=== PATIENT | male | born 1970 | race Caucasian/White ===

== ENCOUNTER 2020-05-29 06:33 | Outpatient (CLI) | payer OTHER, SELFPAY ==
[2020-05-29 06:50] VITALS: BMI 29.8
--- NOTE | 2020-05-29 06:50 | ECG_ITS ---
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 The baseline electrocardiogram showed normal sinus rhythm, normal axis with normal ST-T's. ??? The patient exercised for 10 minutes and 30 seconds on a [standard Kamar protocol]. Patient attained a maximum heart rate of 167 beats per minute( 98 % of the maximum predicted heart rate) with a blood pressure at the peak exercise of 188/75 mm Hg, oxygen saturation of 95%. The EKG at the peak exercise revealed sinus tachycardia with no significant ST-T wave changes. Patient did not have any chest pain or any significant cardiac arrhythmias with the exercise. ??? During the recovery phase, there were no new changes. ??? Blood pressure at the end of the recovery phase was 162/102 mm Hg with a heart rate of 95 beats per minute and oxygen saturation of 96%. ??? CONCLUSION: 1. Normal EKG response to treadmill exercise. 2. No exercise-induced chest pain or cardiac arrhythmia. 3. Excellent exercise tolerance, attained a maximum of 13.5 METs. Maximum VO2 of 47.3 ml/kg/min. 4. Perfusion scan will be reported separately. Electronically Signed On 05-30-2020 0:55:32 CDT by Rachael Rodríguez M.D. [id number]
--- NOTE | 2020-05-29 06:51 | NMCV_ITS ---
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 Images obtained in supine and prone position. SPECT RESULTS Technical Quality: Excellent Raw Data Analysis: Normal Image Corrections: No attenuation or motion correction applied Summed Stress Score: 0 Summed Rest Score: 0 Summed Difference Score: 0 PERFUSION FINDINGS Small sized perfusion abnormality of mild severity of mid anteroseptal and mid inferior judd on rest images with improved tracer uptake on stress images. This likely represents attenuation artifact. FUNCTIONAL RESULTS (calculated via Gated SPECT) Stress Image LV EF (%): 72 Stress EDV (mL):88 TID: 0.7 Stress ESV (mL):25 FUNCTIONAL FINDINGS: The left ventricle is normal in size. Transient Ischemia Dilatation of 0.7. There is normal left ventricular systolic function. The left ventricular ejection fraction is normal with a value of 72%. There is normal left ventricular wall thickening with no regional wall motion abnormality. Normal end diastolic and end systolic volumes. IMPRESSIONS 1. Myocardial perfusion imaging is normal. 2. Overall left ventricular systolic function is normal without regional wall motion abnormalities. 3. The left ventricular ejection fraction is normal with a value of 72%. 4. No coronary ischemia based on this study. Rachael Rodríguez MD (Electronically Signed) Final Date: 29 May 2020 20:40 S
--- NOTE | 2020-05-29 09:05 | SUR.PREOP ---
Patient reports no pain or discomfort prior to the start of the procedure.
[2020-05-29 09:36] VITALS: BP 162/104; PULSE 91
== END 2020-05-29 06:34 | disposition home or self-care (01) ==
LOC: CDL 06:33
PROVIDERS: PCP Emergency Medicine Emergency Medical Services; Visit Provider Internal Medicine Cardiovascular Disease
DX: R06.02 Shortness of breath (principal); R07.9 Chest pain, unspecified
CPT/HCPCS: 78452; 93017; A9500

== ENCOUNTER → 2021-10-20 13:44 | Outpatient (BNVA) | payer OTHER, SELFPAY | PROVIDERS: PCP Emergency Medicine Emergency Medical Services; Visit Provider Internal Medicine | DX: I25.10 Atherosclerotic heart disease of native coronary artery without angina pectoris (principal); I25.2 Old myocardial infarction; R06.02 Shortness of breath; E78.49 Other hyperlipidemia; F17.200 Nicotine dependence, unspecified, uncomplicated | CPT/HCPCS: 99214 ==

== ENCOUNTER 2021-12-27 08:28 | Outpatient (CLI) | payer OTHER, SELFPAY ==
--- NOTE | 2021-12-27 09:30 | USCV_ITS ---
Luiz Buckley Age: 51 Gender: M : 1970 Exam Date: 12/27/2021 08:43 Ordering Phys: Bashir Black M.D ([email or web address]) Technologist: Kareen Gonsalez Exam Location: [facility] Indication: SOB, CP, history stents BP: 125 / 75 HR: 64 Rhythm: Sinus Technical Quality: Good MEASUREMENTS (Male / Female) Normal Values 2D ECHO LV Diastolic Diameter PLAX 4.3 cm 4.2 - 5.9 / 3.9 - 5.3 cm LV Systolic Diameter PLAX 2.9 cm IVS Diastolic Thickness 1.4 cm 0.6 - 1.0 / 0.6 - 0.9 cm IVS Systolic Thickness 1.6 cm LVPW Diastolic Thickness 0.9 cm 0.6 - 1.0 / 0.6 - 0.9 cm LVPW Systolic Thickness 1.8 cm LVOT Diameter 2.1 cm LV Ejection Fraction 2D Teich 61.1 % LV Ejection Fraction MOD 2C 76.2 % LV Ejection Fraction 2C AL 76.6 % LA Diameter 2.8 cm LA Width 2.7 cm LA Height 3.8 cm RA Width 3.3 cm RA Height 4.3 cm Aorta at Sinotubular Diameter 3.3 cm IVC Diameter 2.1 cm M-MODE Aortic Annulus Diameter 2.0 cm MV E Point Septal Separation 0.6 cm DOPPLER AV Peak Velocity 104.0 cm/s LVOT Peak Velocity 88.0 cm/s AV Area Cont Eq vti 3.0 cm squared AV Area Cont Eq pk 2.8 cm squared MV Peak Velocity 87.0 cm/s MV Area PHT 4.2 cm squared Mitral E to A Ratio 1.2 MV E' Velocity 75.0 cm/s TR Peak Velocity 133.3 cm/s TR Peak Gradient 7.1 mmHg Right Atrial Pressure 3.0 mmHg Pulmonary Artery Systolic Pressu 10.1 mmHg PV Peak Velocity 111.0 cm/s RV Acceleration Time 0.1 s RV Ejection Time 0.3 s RV AcT/ET 0.5 FINDINGS Left Ventricle Normal left ventricular size, systolic function and wall thickness, with no regional wall motion abnormalities. Left ventricular ejection fraction is estimated at 65 %. Normal diastolic filling pattern. Right Ventricle Normal right ventricular size and systolic function. Right ventricular systolic pressure 10.1 mmHg. Right Atrium Normal right atrial size. Left Atrium Normal left atrial size. Mitral Valve Structurally normal mitral valve. No mitral valve stenosis. Trace mitral valve regurgitation. Aortic Valve Structurally normal trileaflet aortic valve. No aortic valve stenosis. No aortic valve regurgitation. Tricuspid Valve Structurally normal tricuspid valve. Trace tricuspid valve regurgitation. Pulmonic Valve Structurally normal pulmonic valve. No pulmonary valve stenosis. Trace pulmonary valve regurgitation. Pericardium No pericardial effusion. Aorta Normal size aortic root and proximal ascending aorta. IVC Normal IVC dimension with >50% respiratory change of the inferior vena cava. CONCLUSIONS 1. Normal left ventricular size, systolic function and wall thickness, with no regional wall motion abnormalities. Left ventricular ejection fraction is estimated at 65 %. Normal diastolic function. 2. Trace mitral valve regurgitation. 3. No prior similar studies to compare. Rachael Rodríguez MD (Electronically Signed) Final Date: 02 January 2022 15:41 S
== END 2021-12-27 08:29 | disposition home or self-care (01) ==
LOC: RAD 08:29
PROVIDERS: PCP Emergency Medicine Emergency Medical Services; Visit Provider Internal Medicine
DX: R06.02 Shortness of breath (principal); R07.9 Chest pain, unspecified; Z98.61 Coronary angioplasty status; I34.0 Nonrheumatic mitral (valve) insufficiency
CPT/HCPCS: 93306

== ENCOUNTER 2022-02-27 10:24 | Emergency (ER) | payer OTHER, SELFPAY ==
[2022-02-27 10:30] VITALS: BP 149/95; PULSE 95; RESP 14; TEMP 36.8; O2SAT 98
--- NOTE | 2022-02-27 10:58 | W.ED.COVID ---
HPI - COVID General: Chief Complaint: COVID symptoms Stated Complaint: neck pain,congestion Time Seen by Provider: 02/27/22 10:58 History of Present Illness: Mr. Buckley is a 52-year-old gentleman with history of CAD s/p stenting, hypertension, hyperlipidemia presenting to the emergency department due to shortness of breath and generalized symptoms. Symptoms began 4 days ago mostly with headache and generalized malaise. Yesterday developed dry cough and some chest tightness. Today he took a home COVID test that was positive. Intensity symptoms is mild to moderate. Course has worsened. No other specific changes in health, exacerbating, or alleviating factors identified. Prior covid testing: yes, results known COVID 19 common symptoms: positive cough, non-productive cough, dyspnea, headache(s) and chest tightness Onset (ago): day(s) Severity: moderate Pertinent comorbid conditions: heart disease and COPD/respiratory disease COVID Results: SARS-CoV-2 Antigen (Rapid) positive (Negative) 02/27/22 11:05 Review of Systems General: Reports: 10 or more systems reviewed and unremarkable except in HPI and below Resp: Reports: dyspnea and non-productive cough Neuro: Reports: headache(s) PFSH ED PFSH: Medical History GERD (gastroesophageal reflux disease) History of colon polyps (~2004) History of myocardial infarction Hyperlipidemia Shortness of breath Sleep apnea Surgical History History of coronary artery stent placement Status post colonoscopy Status post right inguinal hernia repair Family History Father Hypertension Denies family history of Anesthesia complication Bleeding disorder Social History Smoking and tobacco status: current every day smoker Quit status (tobacco): has tried quititng Second hand smoke exposure: No Alcohol intake: current Alcohol intake frequency: holidays/special occasions only Desire information about alcohol rehabilitation?: No Adopted: No Caregiver/support person: Yes Lives independently: Yes Household members: spouse Housing: House Marital status: Highest education level completed: High School Graduate service: Yes Current occupational status: employed Current occupational exposures/hazards: No Pets and animals: Yes History of recent travel: No Sexually active: Yes Current gender identity: Male Cristina/Congregation: Bahai Special cristina needs: No Agree to transfusion: No Financial difficulty paying for basics: Decline to Answer Physical Exam Const: COMMON NORMALS: alert GENERAL APPEARANCE: cooperative and well developed HENMT: COMMON NORMALS: normocephalic and atraumatic HEAD & SCALP: normocephalic and atraumatic Eye: COMMON NORMALS: conjunctivae normal CONJUNCTIVA: Yes conjunctivae normal SCLERA: sclerae normal Neck/C-Spine: COMMON NORMALS: supple GENERAL: Yes trachea midline Resp: COMMON NORMALS: clear to auscultation bilaterally EFFORT & INSPECTION: Yes able to speak in complete sentences AUSCULTATION: clear to auscultation bilaterally Cardio: COMMON NORMALS: regular rate and regular rhythm RATE: regular rate RHYTHM: regular rhythm GI: COMMON NORMALS: Soft to palpation PALPATION: Yes Soft to palpation and No Tenderness to palpation present (GI) Extremity: GENERAL: Yes normal exam except as noted and No edema Neuro: COMMON NORMALS: moves all extremities SENSORIUM/ORIENTATION: Yes alert and No Orientation impaired Psych: COMMON NORMALS: mental status grossly normal and Normal thought process present THOUGHT PROCESS: Normal thought process present Course Vital Signs: Vital signs: Vital Signs Temperature 98.2 F 02/27/22 10:30 Pulse Rate 95 02/27/22 10:30 Respiratory Rate 18 02/27/22 12:30 Blood Pressure 149/95 02/27/22 10:30 Pulse Oximetry 98 02/27/22 10:30 Oxygen Delivery Me thod 02/27/22 10:30 [facility] - COVID Medical Decision Making 52-year-old gentleman presenting with generalized illness including dry cough and positive home COVID test. Patient is nontoxic, exam as above. EKG notable for sinus rhythm, no STEMI. COVID-positive. Chest x-ray with no lobar consolidation or pneumothorax. Patient proved with Toradol, Decadron and given underlying lung disease also treated with doxycycline. He felt improved. Discussed paxlovid with patient. He wishes to proceed with treatment. Most likely etiology of patient's symptoms is viral to exacerbation of underlying airway disease with context of COVID-19. He is not requiring oxygen and is satisfactory for outpatient management. The results of ED evaluation were discussed with the patient including prescriptions and/or symptomatic cares (if applicable) including appropriate and responsible use, followup plan, and return precautions. The patient verbalized understanding and felt safe for discharge. Medical Records I reviewed the patient's medical records. Lab Data I reviewed the patient's lab results. Radiology Impressions Chest X-Ray 02/27/22 11:04 IMPRESSION: No acute findings. Laboratory Results SARS-CoV-2 Ag (Rapid) positive (Negative) 02/27/22 11:05 SARS-CoV-2 Antigen (Rapid) positive (Negative) 02/27/22 11:05 Discharge Plan Discharge Patient Disposition: Home Clinical Impression: COVID-19, COPD with acute bronchitis Condition: Stable Prescriptions: New Decadron 6 mg tablet 6 mg PO DAILY Qty: 14 0RF Paxlovid (EUA) 300 mg (150 mg x 2)-100 mg tablets,dose pack See Rx Instructions .ROUTE .COMPLEX Qty: 30 0RF Rx Instructions: orally per package directions albuterol sulfate 90 mcg/actuation HFA aerosol inhaler 2 inh inhalation Q4H PRN (Reason: shortness of breath or wheezing) Qty: 8.5 0RF No Action omeprazole 20 mg capsule,delayed release(DR/EC) 20 mg PO DAILY clopidogrel [Plavix] 75 mg tablet 75 mg PO DAILY atorvastatin 40 mg tablet 40 mg PO DAILY aspirin 81 mg tablet,delayed release (DR/EC) 81 mg PO DAILY nitroglycerin [Nitrostat] 0.4 mg tablet, sublingual 0.4 mg sublingual Q5M PRN (Reason: chest pain) Qty: 90 3RF Rx Instructions: do not exceed 3 doses per episode albuterol sulfate 90 mcg/actuation HFA aerosol inhaler 2 puff inhalation Q6H PRN (Reason: shortness of breath or wheezing) Qty: 6.7 0RF Discharge Orders: Discharge ED (Routine); Ordered 02/27/22 Ordered By: Kareem Araya Referrals: Donato Harvey, DO [Primary Care Provider] - Discharge Diet: Usual diet Discharge Activity: Resume usual activity Patient Instructions: Nirmatrelvir/Ritonavir (By mouth) (Paxlovid), COPD (Chronic Obstructive Pulmonary Disease) (ED), COVID-19 (Coronavirus Disease 2019) (ED), How to Recover from COVID-19 at Home (ED) Activity Restrictions/Additional Instructions: Thank you for visiting the emergency department. You were seen and evaluated for generalized illness. The most likely cause of your symptoms is COVID-19 with exacerbation of underlying lung disease due to smoking. I will prescribe paxlovid which is authorized under emergency use authorization as discussed. Please ensure that you are staying hydrated. You may use [id number] medications such as acetaminophen and ibuprofen for pain however please do not exceed the daily recommended dosage as listed on the packaging and please keep in mind that many namebrand medications contain the same active ingredients. Please avoid these medications if previously instructed to do so by another physician due to other underlying medical condition. I will prescribe steroids and antibiotics. Please also use your albuterol metered-dose inhaler 2 puffs every 4 hours for 24 hours followed by 2 puffs every 6 hours for 24 hours followed by 2 puffs every 8 hours for 24 hours and then return to the normal schedule. Return to the emergency department for uncontrolled symptoms or anything else that you are concerned about and feel needs emergency department evaluation. Please follow-up with a primary care provider. Establish with a primary care provider if you do not currently have one. Coding Level of Care Code ED Board Runner for Al Fwshawn Exam Comprehensive
--- NOTE | 2022-02-27 11:04 | XRR_ITS ---
PROCEDURE INFORMATION: Exam: XR Chest Exam date and time: 02/27/2022 11:41 AM Age: 52 years old Clinical indication: Cough TECHNIQUE: Imaging protocol: Radiologic exam of the chest. Views: 1 view. COMPARISON: No relevant prior studies available. FINDINGS: Lungs: No consolidation. Pleural spaces: Unremarkable. No pleural effusion. No pneumothorax. Heart/Mediastinum: No cardiomegaly. Bones/joints: No acute findings. XR/XR chest 1V portable [id number] IMPRESSION: No acute findings.
--- NOTE | 2022-02-27 11:44 | ECG_ITS ---
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 Measurements Intervals [place] Rate: 85 P: 31 [place]: 170 QRS: 11 QRSD: 85 T: 41 QT: 327 QTc: 390 Interpretive Statements SINUS RHYTHM No previous ECG available for comparison Electronically Signed On 02-28-2022 6:08:04 VASCULAR NURSE by Rachael Rodríguez M.D. [id number]
[2022-02-27] MEDS: ketorolac 30 mg/mL INJ IM (11:47)
[2022-02-27] MEDS: dexamethasone 4 mg Tablet 6 MG PO (11:47)
[2022-02-27 11:52] LABS: SARS Covid-2 Antigen positive (Negative)
[2022-02-27] MEDS: doxycycline 100 mg Tablet PO (12:26)
[2022-02-27 12:30] VITALS: RESP 18
== END 2022-02-27 12:30 | disposition home or self-care (01) ==
PROVIDERS: Emergency Provider Emergency Medicine; PCP Emergency Medicine Emergency Medical Services
DX: U07.1 COVID-19 (principal); J44.0 Chronic obstructive pulmonary disease with (acute) lower respiratory infection; J20.9 Acute bronchitis, unspecified; Z79.82 Long term (current) use of aspirin; Z79.02 Long term (current) use of antithrombotics/antiplatelets; I25.2 Old myocardial infarction; E78.5 Hyperlipidemia, unspecified; F17.210 Nicotine dependence, cigarettes, uncomplicated
CPT/HCPCS: 71045; 87426; 93005; 96372; 99284; J1885; J8540

== ENCOUNTER 2022-03-18 06:51 | Outpatient (CLI) | payer OTHER, SELFPAY ==
[2022-03-18 07:11] VITALS: BMI 31.1
--- NOTE | 2022-03-18 07:15 | ECG_ITS ---
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 Interpretive Statements NAME OF STUDY: LEXISCAN SESTAMIBI STRESS TEST INDICATION: [Shortness of Breath, ] Procedure: At the baseline, the blood pressure was 153/89 mmHg with a heart rate of 59 bpm. The electrocardiogram showed sinus bradycardia, normal axis with normal ST and T's. The Lexiscan was infused over a period of 20 seconds. A total of 0.4 mg of Lexiscan was infused. The stress phase was continued for a total of 5 minutes. Heart rate was at the end of stress phase was 84 bpm and a blood pressure of 160/86 mmHg. The EKG at the peak infusion revealed normal sinus rhythm with no significant ST-T wave changes. Sestamibi was injected 20 seconds after the Lexiscan infusion. Blood pressure at the end of recovery phase was 156/89mmHg with a heart rate of 74 bpm. Conclusion: 1. Normal EKG response to Lexiscan infusion 2. No Lexiscan induced chest pain or cardiac arrhythmia. 3. Normal blood pressure and heart rate response. 4. Sestamibi/sestamibi perfusion scan pending; see separate report. Electronically Signed On 03-31-2022 10:56:38 CLIENT SERVICES ASSISTANT by Bashir Black M.D. [id number]
--- NOTE | 2022-03-18 07:16 | NMCV_ITS ---
NM estela perf SPECT r/s* [id number] Luiz Buckley Age: 52 Gender: M : 1970 Exam Date: 03/18/2022 07:36 Ordering Phys: Bashir Black M.D ([email or web address]) Technologist: CARSON Novak Exam Location: [facility] Indications: SHORTNESS OF BREATH STRESS TEST Please see separate stress test report in Ephiphany for full findings IMAGE PROTOCOL Rest/Stress 1 Lexiscan Day Radiopharmaceutical Dose (mCi) Administration Site Administered by Rest: Tc-99m 10.9 IV CARSON Logan Sestamibi Stress:Tc-99m 32.4 IV CARSON Logan Sestamibi Rest: 18-Mar-2022 60 Discovery 630 Stress: 18-Mar-2022 30 Discovery 630 0.4mg Lexiscan. Images obtained in supine and prone position. SPECT RESULTS Technical Quality: Excellent Raw Data Analysis: Normal Image Corrections: No attenuation or motion correction applied Summed Stress Score: 0 Summed Rest Score: 0 Summed Difference Score: 0 PERFUSION FINDINGS SPECT images demonstrate homogeneous tracer distribution throughout the myocardium. FUNCTIONAL RESULTS (calculated via Gated SPECT) Stress Image LV EF (%): 74 Stress EDV (mL):120 TID: 1.05 Stress ESV (mL):31 FUNCTIONAL FINDINGS: There is normal left ventricular systolic function. IMPRESSIONS 1. Normal myocardial perfusion imaging with no evidence of ischemia 2. LV systolic function is normal. Bashir Black MD (Electronically Signed) Final Date: 18 March 2022 13:21 S
[2022-03-18] MEDS: regadenoson 0.4 Mg/5 ml Syringe IVP (09:22)
[2022-03-18 09:36] VITALS: BP 158/89; PULSE 77
== END 2022-03-18 06:52 | disposition home or self-care (01) ==
LOC: CDL 06:53
PROVIDERS: PCP Emergency Medicine Emergency Medical Services; Visit Provider Internal Medicine
DX: R06.02 Shortness of breath (principal)
CPT/HCPCS: 36415; 78452; 93017; 96374; A9500; J2785

== ENCOUNTER → 2022-07-18 14:31 | Outpatient (BNVA) | payer OTHER, SELFPAY | PROVIDERS: PCP Emergency Medicine Emergency Medical Services; Visit Provider Internal Medicine | DX: I25.2 Old myocardial infarction (principal); R06.02 Shortness of breath; E78.49 Other hyperlipidemia; I25.10 Atherosclerotic heart disease of native coronary artery without angina pectoris; F17.210 Nicotine dependence, cigarettes, uncomplicated | CPT/HCPCS: 99214 ==

== ENCOUNTER 2022-08-05 14:11 | Emergency (ER) | payer OTHER, SELFPAY ==
[2022-08-05 14:30] VITALS: BP 158/94; PULSE 86; RESP 16; TEMP 36.7; O2SAT 95
--- NOTE | 2022-08-05 16:18 | CTR_ITS ---
PROCEDURE INFORMATION: Exam: CT Abdomen And Pelvis With Contrast Exam date and time: 08/05/2022 4:31 PM Age: 52 years old Clinical indication: Abdominal pain; Localized; Lower; Prior surgery; Surgery date: 6+ months; Surgery type: Right inguinal hernia; Additional info: Abd pain TECHNIQUE: Imaging protocol: Computed tomography of the abdomen and pelvis with contrast. Radiation optimization: All CT scans at this facility use at least one of these dose optimization techniques: automated exposure control; mA and/or kV adjustment per patient size (includes targeted exams where dose is matched to clinical indication); or iterative reconstruction. Contrast material: OMNI 350; Contrast volume: 100 ml; Contrast route: INTRAVENOUS (IV); REPORTING DATA: Count of CT and Cardiac NM exams in prior 12 months: This patient has received [address] and 0 known cardiac nuclear medicine studies in the 12 months prior to the current study. COMPARISON: CR XR chest 1V portable [id number] 02/27/2022 11:41 AM RADIATION DOSE METRICS: Total DLP (mGy-cm): 665.17 FINDINGS: Lungs: Multiple 2-3 mm nodules in the lower lobes. Liver: Normal. No mass. Gallbladder and bile ducts: Normal. No calcified stones. No ductal dilation. Pancreas: Normal. No ductal dilation. Spleen: Normal. No splenomegaly. Adrenal glands: Normal. No mass. Kidneys and ureters: Normal. No hydronephrosis. Stomach and bowel: Diverticulosis of the distal colon. Inflammation and fat stranding surrounding a single diverticulum in the proximal sigmoid colon, consistent with acute diverticulitis. No definite perforation. The stomach is decompressed. The small bowel is normal. No obstruction. Appendix: The appendix is visualized and is normal. Intraperitoneal space: Unremarkable. No free air. No significant fluid collection. Vasculature: Arterial calcifications. No aneurysm. Lymph nodes: Unremarkable. No enlarged lymph nodes. Urinary bladder: Unremarkable as visualized. Reproductive: Unremarkable as visualized. Bones/joints: Bone island in the L1 vertebral body. Spondylitic degenerative changes at L5-S1. No fracture. Soft tissues: Small fat containing umbilical hernia. CT/CT abdomen pelvis w con* [id number] IMPRESSION: 1. Acute sigmoid diverticulitis. 2. 2-3 mm pulmonary nodules. For patients at low risk (minimal or absent history of smoking and of other known risk factors), no routine follow-up is indicated. For patients at high risk (history of smoking or of other known risk factors), consider optional CT Chest at 12 months. (Reference: Chinyere) References: Chinyere Chand, et al. Guidelines for Management of Incidental Pulmonary Nodules Detected on CT Images: From the Fleischner Society 2017. Radiology. 2017;284(1):228-243.
--- NOTE | 2022-08-05 16:24 | W.ED.ABDPA2 ---
HPI - Abdominal Pain General: Chief Complaint: Abdominal Pain Stated Complaint: urinary pain Time Seen by Provider: 08/05/22 14:52 Source: patient Mode of arrival: ambulatory Limitations: no limitations History of Present Illness: 52-year-old male who states that he has been having some lower abdominal and flank pain over the last 2 to 3 days. He states it was worse this morning its worst was an 8 out of 10 much worse with movement he states it is actually improved slightly is now 3 out of 10 still having some pain in the right lower quadrant states that for quite some time he seems like he has a hard time peeing at times but he states he is able to urinate. He denies any dysuria or pain with stools. Denies any discharge. Associated Symptoms: Denies chills and fever(s) Review of Systems Const: Denies: fever(s), chills, body aches or change in appetite Eyes: Denies: blurry vision or eye discomfort ENMT: Denies: throat pain or dental pain Card: Denies: chest pain Resp: Denies: dyspnea GI: Reports: abdominal pain Musc: Denies: neck pain or back pain Skin/Breast: Denies: rash Neuro: Denies: headache(s) PFSH ED PFSH: Medical History GERD (gastroesophageal reflux disease) History of colon polyps (~2004) History of myocardial infarction Hyperlipidemia Shortness of breath Sleep apnea Surgical History History of coronary artery stent placement Status post colonoscopy Status post right inguinal hernia repair Family History Father Hypertension Denies family history of Anesthesia complication Bleeding disorder Social History Smoking and tobacco status: current every day smoker Quit status (tobacco): has tried quititng Second hand smoke exposure: No Alcohol intake: current Alcohol intake frequency: holidays/special occasions only Desire information about alcohol rehabilitation?: No Substance/Drug Use: never Adopted: No Caregiver/support person: Yes Lives independently: Yes Household members: spouse Housing: House Marital status: Highest education level completed: High School Graduate service: Yes Current occupational status: employed Current occupational exposures/hazards: No Pets and animals: Yes Sexually active: Yes Do you think of yourself as: Straight/Heterosexual Current gender identity: Male Cristina/Shinto: Cheondoism Special cristina needs: No Agree to transfusion: No Financial difficulty paying for basics: Decline to Answer Physical Exam Const: COMMON NORMALS: no acute distress, patient oriented x3 and healthy appearing HENMT: COMMON NORMALS: normocephalic and atraumatic HEAD & SCALP: normocephalic and atraumatic Eye: COMMON NORMALS: Equal, round and reactive pupils present and EOMs intact bilaterally PUPIL: Yes Equal, round and reactive pupils present Neck/C-Spine: COMMON NORMALS: supple Chest: COMMONS NORMALS: normal inspection of the chest and normal palpation of entire chest wall Resp: COMMON NORMALS: normal respiratory effort, No retractions, No use of accessory muscles and clear to auscultation bilaterally AUSCULTATION: clear to auscultation bilaterally Cardio: COMMON NORMALS: regular rate, regular rhythm and No murmurs present (Cardio) RATE: regular rate RHYTHM: regular rhythm GI: COMMON NORMALS: Normal to inspection, nondistended, normoactive bowel sounds present, Soft to palpation and no masses PALPATION: Yes Soft to palpation OTHER: mild rlq tenderness Extremity: COMMON NORMALS: normal to inspection and full ROM Neuro: COMMON NORMALS: patient oriented x3, moves all extremities and no focal motor deficits Psych: COMMON NORMALS: mental status grossly normal, Normal thought process present and cooperative THOUGHT PROCESS: Normal thought process present Skin: COMMON NORMALS: no rashes or lesions noted and no wounds GENERAL SKIN EXAM: no rashes or lesions noted Course Vital Signs: Vital signs: Vital Signs Temperature 98.0 F 08/05/22 14:30 Pulse Rate 66 08/05/22 16:30 Respiratory Rate 16 08/05/22 14:30 Blood Pressure 153/83 08/05/22 16:30 Pulse Oximetry 97 08/05/22 16:30 Oxygen Delivery Me thod Room Air 08/05/22 16:30 MDM - Abdominal Pain Medical Decision Making Patient presents here with abdominal pain he has minimal tenderness white counts normal CT did show diverticulitis I believe will be able to treat him outpatient with oral antibiotics. Will prescribe him Cipro Flagyl we will prescribe him hydrocodone along with Zofran. He is to follow-up with his PCP and return if worsening. Medical Records I reviewed the patient's medical records. Lab Data I reviewed the patient's lab results. 08/05/22 17:00 08/05/22 17:00 Labs/Radiology: Radiology Impressions Abdomen/Pelvis CT 08/05/22 16:18 IMPRESSION: 1. Acute sigmoid diverticulitis. 2. 2-3 mm pulmonary nodules. For patients at low risk (minimal or absent history of smoking and of other known risk factors), no routine follow-up is indicated. For patients at high risk (history of smoking or of other known risk factors), consider optional CT Chest at 12 months. (Reference: Chinyere) References: Chinyere Chand, et al. Guidelines for Management of Incidental Pulmonary Nodules Detected on CT Images: From the Fleischner Society 2017. Radiology. 2017;284(1):228-243. Laboratory Results WBC 8.8 10^3/uL (4.0-10.0) 08/05/22 17:00 RBC 4.40 10^6/uL (4.1-5.3) 08/05/22 17:00 Hgb 13.0 g/dL (11.7-16.6) 08/05/22 17:00 Hct 39.2 % (42.0-52.0) L 08/05/22 17:00 MCV 89.1 fl (80-94) 08/05/22 17:00 MCH 29.5 pg (28.0-34.0) 08/05/22 17:00 MCHC 33.2 g/dL (30.0-36.0) 08/05/22 17:00 RDW 12.5 % (12.1-15.1) 08/05/22 17:00 Plt Count 182 10^3/cmm (130-400) 08/05/22 17:00 MPV 9.8 fL (7.4-10.4) 08/05/22 17:00 Neut % (Auto) 63.0 % 08/05/22 17:00 Lymph % (Auto) 27.9 % 08/05/22 17:00 [place] % (Auto) 6.2 % 08/05/22 17:00 Eos % (Auto) 2.0 % 08/05/22 17:00 Baso % (Auto) 0.6 % 08/05/22 17:00 Neut # (Auto) 5.56 10^3/uL (1.8-7.7) 08/05/22 17:00 Lymph # (Auto) 2.5 10^3/uL (0.8-4.8) 08/05/22 17:00 [place] # (Auto) 0.6 10^3/uL (0.2-0.9) 08/05/22 17:00 Eos # (Auto) 0.2 10^3/uL (0.0-0.8) 08/05/22 17:00 Baso # (Auto) 0.1 10^3/uL (0.0-0.1) 08/05/22 17:00 Nucleated RBC % (auto) 0 % 08/05/22 17:00 Nucleated RBCs # 0.0 /100WBC 08/05/22 17:00 Sodium 138 mmol/L (136-145) 08/05/22 17:00 Potassium 4.0 mmol/L (3.5-5.1) 08/05/22 17:00 Chloride 102 mmol/L (98-107) 08/05/22 17:00 Carbon Dioxide 26 mmol/L (22-29) 08/05/22 17:00 Anion Gap 14.0 (5-19) 08/05/22 17:00 BUN 13 mg/dL (6-20) 08/05/22 17:00 Creatinine 0.9 mg/dL (0.7-1.2) 08/05/22 17:00 GFR Calculation 88.3 mL/min (90-130) L 08/05/22 17:00 Glucose 72 mg/dL (65-115) 08/05/22 17:00 Calculated Osmolality 285 mOsm/kg (285-295) 08/05/22 17:00 Calcium 8.7 mg/dL (8.5-10.5) 08/05/22 17:00 Total Bilirubin 0.5 mg/dL (0.15-1.2) 08/05/22 17:00 AST 17 U/L (0-40) 08/05/22 17:00 ALT 16 U/L (0-41) 08/05/22 17:00 Alkaline Phosphatase 99 U/L (40-130) 08/05/22 17:00 Total Protein 6.4 g/dL (6.6-8.7) L 08/05/22 17:00 Albumin 4.0 g/dL (3.5-5.2) 08/05/22 17:00 Globulin 2.4 g/dL (1.3-4.6) 08/05/22 17:00 Lipase 24 U/L (13-60) 08/05/22 17:00 Urine Color Yellow (Yellow) 08/05/22 16:43 Urine Appearance Clear (CLEAR) 08/05/22 16:43 Urine pH 5 (5-7) 08/05/22 16:43 Ur Specific [place] 1.020 (1.005-1.030) 08/05/22 16:43 Urine Protein Neg (Negative) 08/05/22 16:43 Urine Glucose (UA) Norm (Normal) 08/05/22 16:43 Urine Ketones 1+ (Negative) H 08/05/22 16:43 Urine Blood Neg (Negative) 08/05/22 16:43 Urine Nitrate Negative (Negative) 08/05/22 16:43 Urine Bilirubin Neg (Negative) 08/05/22 16:43 Urine Urobilinogen 1 mg/dL (Negative) H 08/05/22 16:43 Ur Leukocyte Esterase Negative (Negative) 08/05/22 16:43 Discharge Plan Discharge Patient Disposition: Home Clinical Impression: Diverticulitis Condition: Stable Prescriptions: New hydrocodone-acetaminophen 5-325 mg tablet 1 tab PO Q6H PRN (Reason: pain) Qty: 14 0RF metronidazole 500 mg tablet 500 mg PO Q8H 7 Days Qty: 21 0RF Cipro 500 mg tablet 500 mg PO BID Qty: 14 0RF ondansetron 4 mg tablet,disintegrating 4 mg PO Q6H PRN (Reason: nausea and vomiting) Qty: 14 0RF No Action omeprazole 20 mg capsule,delayed release(DR/EC) 20 mg PO DAILY clopidogrel [Plavix] 75 mg tablet 75 mg PO DAILY atorvastatin 40 mg tablet 40 mg PO DAILY aspirin 81 mg tablet,delayed release (DR/EC) 81 mg PO DAILY nitroglycerin [Nitrostat] 0.4 mg tablet, sublingual 0.4 mg sublingual Q5M PRN (Reason: chest pain) Qty: 90 3RF Rx Instructions: do not exceed 3 doses per episode albuterol sulfate 90 mcg/actuation HFA aerosol inhaler 2 inh inhalation Q4H PRN (Reason: shortness of breath or wheezing) Qty: 8.5 0RF Discharge Orders: Discharge ED (Routine); Ordered 08/05/22 Ordered By: Lubna Lee Referrals: Derik Calix DO [Physician] - 1-3 days Donato Harvey DO [Primary Care Provider] - Discharge Diet: Advance as tolerated Discharge Activity: Resume usual activity Patient Instructions: Diverticulitis (ED), Opioid Safety Coding Level of Care Code ED [employer] for [facility]
[2022-08-05 16:30] VITALS: BP 153/83; PULSE 66; O2SAT 97
[2022-08-05 16:58] LABS: Add Urine Microscopic? NO; Charge for UA Resulting for Rev
[2022-08-05 17:05] LABS: Glucose Urine UA Norm (Normal); Protein Urine Neg (Negative); Urine Appearance Clear (CLEAR); Urine Color Yellow (Yellow); pH Urine 5 (5-7)
[2022-08-05 17:06] LABS: Bilirubin Urine Neg (Negative); Blood Urine Neg (Negative); Ketones Urine 1+ (Negative); Leukocyte Esterase Urine Negative (Negative); Nitrate Urine Negative (Negative); Urobilinogen Urine 1 mg/dL (Negative)
[2022-08-05 17:08] LABS: Basophils # 0.1 10^3/uL (0.0-0.1); Basophils % 0.6 %; Eosinophils # 0.2 10^3/uL (0.0-0.8); Hematocrit 39.2 % (42.0-52.0); Lymphocytes # 2.5 10^3/uL (0.8-4.8); Lymphocytes % 27.9 %; Mean Corpuscular HGB Conc 33.2 g/dL (30.0-36.0); Mean Corpuscular Hemoglobin 29.5 pg (28.0-34.0); Mean Corpuscular Volume 89.1 fl (80-94); Mean Platelet Volume 9.8 fL (7.4-10.4); Monocytes # 0.6 10^3/uL (0.2-0.9); Monocytes % 6.2 %; Neutrophils # 5.56 10^3/uL (1.8-7.7); Nucleated Red Blood Cells % 0 %; Platelet Count 182 10^3/cmm (130-400); Red Cell Distribution Width 12.5 % (12.1-15.1); White Blood Count 8.8 10^3/uL (4.0-10.0)
[2022-08-05 17:22] LABS: Alanine Aminotransferase 16 U/L (0-41); Alkaline Phosphatase 99 U/L (40-130); Aspartate Amino Transferase 17 U/L (0-40); Blood Urea Nitrogen 13 mg/dL (6-20); Calcium 8.7 mg/dL (8.5-10.5); Carbon Dioxide 26 mmol/L (22-29); Chloride 102 mmol/L (98-107); Globulin 2.4 g/dL (1.3-4.6); Glomerular Filtration Rate 88.3 mL/min (90-130); Glucose 72 mg/dL (65-115); Lipase 24 U/L (13-60); Osmolality Calculated 285 mOsm/kg (285-295); Sodium 138 mmol/L (136-145); Total Bilirubin 0.5 mg/dL (0.15-1.2); Total Protein 6.4 g/dL (6.6-8.7)
[2022-08-05] MEDS: ciprofloxacin 500 mg Tablet PO (17:31)
[2022-08-05] MEDS: metroNIDAZOLE 500 MG Tablet PO (17:31)
[2022-08-05 17:54] VITALS: BP 150/103; PULSE 67; O2SAT 100
--- NOTE | 2022-08-08 08:26 | DCPLANNER ---
Addendum entered by Dana Villafuerte 09/09/22 10:08: This appointment was cancelled Addendum entered by Dana Villafuerte 08/09/22 09:07: ultrasound manager received the following message from general surgery regarding follow up appointment: Spoke with patient. He is aware Dr. Calix is not accepting [employer] insurance so he offered [employer] (active). He is also aware that whatever [employer] does not cover that he will be responsible for. I gave him a date with Dr. Calix for 08/23/22. He may be calling back to cancel since his [facility] is potentially getting a referral set up else where. Patient has a follow up appointment scheduled for Tuesday, August 23, 2022 at 3:[address] Calix at general surgery. Addendum entered by Dana Villafuerte 08/09/22 09:06: Patient called casework manager back, casework manager explained to patient that he would need to be referred elsewhere. Patient stated that he had different insurance that he wanted to use and not the [facility]. ultrasound manager had patient speak with general surgery. Addendum entered by Dana Villafuerte 08/08/22 14:25: Patient has [facility] insurance, will need to be referred somewhere else. ultrasound manager tried to call patient at [phone] - unable to speak with patient at this time, a voicemail was left for patient to return catalytic case operator phone call. Original Note: ultrasound manager had message to schedule a follow up appointment for patient with general surgery. ultrasound manager sent patients information to the front office staff at general surgery. Patients information will be printed and reviewed. Clinic will call patient with appointment information.
== END 2022-08-05 17:55 | disposition home or self-care (01) ==
PROVIDERS: Emergency Provider Emergency Medicine; PCP Emergency Medicine Emergency Medical Services
DX: K57.92 Diverticulitis of intestine, part unspecified, without perforation or abscess without bleeding (principal); Z79.82 Long term (current) use of aspirin; Z79.02 Long term (current) use of antithrombotics/antiplatelets; I25.2 Old myocardial infarction; E78.5 Hyperlipidemia, unspecified; F17.210 Nicotine dependence, cigarettes, uncomplicated
CPT/HCPCS: 74177; 80053; 81003; 83690; 85025; 99284

== ENCOUNTER → 2022-10-03 07:59 | Outpatient (BNVA) | payer OTHER, SELFPAY | PROVIDERS: PCP Emergency Medicine Emergency Medical Services; Referring Provider Emergency Medicine Emergency Medical Services; Visit Provider Nurse Practitioner Family | DX: L57.0 Actinic keratosis (principal); L82.1 Other seborrheic keratosis; D29.4 Benign neoplasm of scrotum; L81.4 Other melanin hyperpigmentation; L57.8 Other skin changes due to chronic exposure to nonionizing radiation; D22.5 Melanocytic nevi of trunk; Z85.820 Personal history of malignant melanoma of skin; Z80.8 Family history of malignant neoplasm of other organs or systems; Z87.891 Personal history of nicotine dependence | CPT/HCPCS: 17000; 17003; 99203 ==

== ENCOUNTER → 2023-01-16 09:32 | Outpatient (BNVA) | payer OTHER, SELFPAY | PROVIDERS: PCP Emergency Medicine Emergency Medical Services; Visit Provider Specialist | DX: M65.30 Trigger finger, unspecified finger (principal) | CPT/HCPCS: 73130 ==

== ENCOUNTER 2023-01-16 11:04 | Outpatient (CLI) | payer OTHER, SELFPAY | END 2023-01-16 11:05 | disposition home or self-care (01) | LOC: SPT 11:06 | PROVIDERS: PCP Emergency Medicine Emergency Medical Services; Visit Provider Specialist | DX: Z46.89 Encounter for fitting and adjustment of other specified devices (principal); M79.641 Pain in right hand | CPT/HCPCS: 99204; L3908 ==

== ENCOUNTER 2023-01-20 05:29 | Outpatient (CLI) | payer OTHER, SELFPAY ==
--- NOTE | 2023-01-20 | USCV_ITS ---
Luiz Buckley Age: 53 Gender: M : 1970 Exam Date: 01/20/2023 06:04 Ordering Phys: Donato Harvey DO Technologist: AISHA Exam Location: [facility] [place] Indication: RLE PAIN HISTORY: Lower extremity pain. PROCEDURES: Venous duplex imaging was performed in only the right lower extremity. The following venous structures were evaluated: common femoral vein, profunda vein, proximal portion of the greater saphenous vein, superficial femoral vein, and the popliteal vein. In addition, the posterior tibial and peroneal trunk were evaluated. Serial compression, augmentation maneuvers, and spectral Doppler flow evaluation were performed. FINDINGS: No evidence of DVT seen in any vessel visualized at this time. CONCLUSIONS No evidence of right lower extremity DVT. Calixto Covarrubias MD (Electronically Signed) Final Date: 20 January 2023 09:20 S
== END 2023-01-20 05:30 | disposition home or self-care (01) ==
LOC: RAD 05:31
PROVIDERS: PCP Emergency Medicine Emergency Medical Services; Visit Provider Emergency Medicine Emergency Medical Services
DX: M25.561 Pain in right knee (principal); M79.661 Pain in right lower leg
CPT/HCPCS: 93971

== ENCOUNTER 2023-02-06 08:06 | Outpatient (CLI) | payer OTHER, SELFPAY ==
--- NOTE | 2023-02-06 08:13 | CT_ITS ---
WS: [id number] CT chest w con* [id number] HISTORY: PULMONARY NODULES FLIP TO CITC/6 MONTHS TECHNIQUE: Axial imaging performed through the thorax. Coronal and sagittal reformats are submitted. All CT scans at [facility] use at least one of these dose optimization techniques: automated exposure control; mA and/or kV adjustment per patient size (includes targeted exams where dose is mat ched to clinical indication); or iterative reconstruction. CONTRAST: Omnipaque 350; 100 mL IV. DLP: 492.21 mGy.cm COMPARISON: 08/05/2022 Lungs and central airway: Very mild pulmonary hyperexpansion. Noncalcified, bilateral lower lobe pulm onary nodules are reidentified. No increase in size since 08/05/2022. There is no mass or pneumonia. Pleura: Normal. No pleural effusion. Heart and pericardium: Normal size heart with no pericardial effusion. Mediastinum and brittanie: No mediastinum or hilar adenopathy. Vessels: Mild atherosclerosis aorta. No aneurysm. Normal size pulmonary artery. Chest wall and lower neck: No soft tissue masses. Upper abdomen: No adrenal mass. Visualized liver is negative. Osseous structures: No destructive process. IMPRESSION: 1. Bilateral lower lobe pulmonary nodules which are noncalcified. The largest measures 5 mm. These ar e unchanged since 08/05/2022. To document long-term stability recommend [address] follow-up. 2. No pneumonia or mass. No adenopathy.
[2023-02-06] MEDS: iohexol 350 mg/mL 500 mL Btl (per mL) IV (09:01)
== END 2023-02-06 08:07 | disposition home or self-care (01) ==
LOC: RAD 08:07
PROVIDERS: PCP Emergency Medicine Emergency Medical Services; Visit Provider Emergency Medicine Emergency Medical Services
DX: R91.8 Other nonspecific abnormal finding of lung field (principal)
CPT/HCPCS: 71260; Q9967

== ENCOUNTER 2023-06-19 14:43 | Emergency (ER) | payer OTHER, SELFPAY ==
[2023-06-19 14:49] VITALS: PULSE 85; RESP 22; TEMP 36.3; O2SAT 95
[2023-06-19 14:56] VITALS: BP 176/104
--- NOTE | 2023-06-19 14:59 | CTR_ITS ---
PROCEDURE INFORMATION: Exam: CT Abdomen And Pelvis Without Contrast Exam date and time: 06/19/2023 3:09 PM Age: 53 years old Clinical indication: Abdominal pain; Localized; Lower; Prior surgery; Surgery date: 6+ months; Surgery type: Hernia; Additional info: Right flank pain TECHNIQUE: Imaging protocol: Computed tomography of the abdomen and pelvis without contrast. Radiation optimization: All CT scans at this facility use at least one of these dose optimization techniques: automated exposure control; mA and/or kV adjustment per patient size (includes targeted exams where dose is matched to clinical indication); or iterative reconstruction. COMPARISON: CT abdomen pelvis w con* [id number] 08/05/2022 4:31 PM RADIATION DOSE METRICS: Total DLP (mGy-cm): 709.28 FINDINGS: Lungs: Subsegmental bibasilar atelectasis. The visualized lung bases are otherwise clear. Diaphragm: No evidence of diaphragmatic defect. Liver: No evidence of focal hepatic lesion within limitation of a noncontrast exam. Gallbladder and bile ducts: Gallbladder is unremarkable. No evidence of intra-hepatic or extra-hepatic biliary dilatation. Pancreas: Grossly unremarkable. Spleen: Grossly unremarkable. Adrenal glands: Grossly unremarkable. Kidneys and ureters: Mild left-sided hydronephrosis secondary to an obstructive 3-4 mm UVJ stone. No right-sided hydronephrosis or stone. Stomach and bowel: There is sigmoid diverticulosis with a single mildly inflamed diverticulum, possibly reflecting subacute/mild diverticulitis (image 171 of series 3). No bowel obstruction or perienteric inflammatory changes. Appendix: Normal appendix. Intraperitoneal space: No evidence of free air or fluid collection. Vasculature: Moderate atherosclerosis without evidence of aneurysmal dilitation of abdominal aorta. Lymph nodes: No evidence of adenopathy. Urinary bladder: Grossly unremarkable. Reproductive: Grossly unremarkable. Bones/joints: No evidence of acute fracture or aggresive osseous lesion. L5-S1 disc osteophyte complex results in moderate right-sided L5-S1 foraminal stenosis. Soft tissues: No evidence of fluid collection or hematoma in the superficial soft tissues. CT/CT kidney stone [id number] IMPRESSION: 1. Mild left-sided hydronephrosis secondary to an obstructive 3-4 mm UVJ stone. 2. Sigmoid diverticulosis with a single mildly inflamed diverticulum, possibly reflecting subacute/mild diverticulitis.
--- NOTE | 2023-06-19 15:01 | ED_ITS ---
HPI - Male Genitourinary 2 General: Chief complaint: Urogenital-Male Stated complaint: Abd pain Time Seen by Provider: 06/19/23 14:55 Source: patient Mode of arrival: ambulatory Limitations: no limitations History of Present Illness: 53-year-old male states he had had some right abdomen and flank pain yesterday states pain had resolved but then today started having severe pain in his penis he states it started all of a sudden a few hours ago he said the pain is a 10 out of 10 he has not been able to really urinate. No history of kidney stones denies any fevers. He has had nausea no vomiting or diarrhea Associated symptoms: Reports nausea; Deny vomiting Review of Systems 2 Const: Denies: fever(s), chills, body aches or change in appetite ENMT: Denies: throat pain or dental pain Card: Denies: chest pain Resp: Denies: dyspnea GI: Reports: abdominal pain and nausea; Denies: vomiting or diarrhea : Reports: difficulty urinating Musc: Denies: neck pain or back pain Skin/Breast: Denies: rash Neuro: Denies: headache(s) PFSH ED 2 PFSH: Medical History GERD (gastroesophageal reflux disease) History of colon polyps (~2004) History of myocardial infarction Hyperlipidemia Shortness of breath Sleep apnea Surgical History History of coronary artery stent placement Status post colonoscopy Status post right inguinal hernia repair Family History Father Hypertension Denies family history of Anesthesia complication Bleeding disorder Social History Smoking and tobacco/nicotine status: current every day tobacco/nicotine user Quit status (tobacco/nicotine): has tried quititng Second hand smoke exposure: No Alcohol intake: current Alcohol intake frequency: holidays/special occasions only Substance/Drug Use: never Adopted: No Caregiver/support person: Yes Lives independently: Yes Household members: spouse Housing: House Marital status: Highest education level completed: High School Graduate service: Yes Current occupational status: employed Current occupational exposures/hazards: No Pets and animals: Yes Sexually active: Yes Do you think of yourself as: Straight/Heterosexual Current gender identity: Male Cristina/Taoist: Orthodox Special cristina needs: No Agree to transfusion: No Physical Exam 2 Const: COMMON NORMALS: no acute distress, patient oriented x3 and healthy appearing HENMT: COMMON NORMALS: normocephalic and atraumatic HEAD & SCALP: n ormocephalic and atraumatic Eye: COMMON NORMALS: conjunctivae normal CONJUNCTIVA: Yes conjunctivae normal Neck/C-Spine: COMMON NORMALS: full ROM and supple Chest: COMMONS NORMALS: normal inspection of the chest Resp: COMMON NORMALS: normal respiratory effort, No retractions, No use of accessory muscles and clear to auscultation bilaterally AUSCULTATION: clear to auscultation bilaterally Cardio: COMMON NORMALS: regular rate, regular rhythm and No murmurs present (Cardio) RATE: regular rate RHYTHM: regular rhythm GI: COMMON NORMALS: Normal to inspection, nondistended, normoactive bowel sounds present, Soft to palpation, non-tender and no masses PALPATION: Yes Soft to palpation Extremity: COMMON NORMALS: normal to inspection and full ROM Neuro: COMMON NORMALS: patient oriented x3, moves all extremities and no focal motor deficits Psych: COMMON NORMALS: mental status grossly normal, Normal thought process present and cooperative THOUGHT PROCESS: Normal thought process present Skin: COMMON NORMALS: no rashes or lesions noted and no wounds GENERAL SKIN EXAM: no rashes or lesions noted Course 2 Vital Signs: Vital signs: Vital Signs Temperature 97.4 F L 06/19/23 14:49 Pulse Rate 71 06/19/23 15:22 Respiratory Rate 22 H 06/19/23 15:28 Blood Pressure 177/109 06/19/23 15:22 Pulse Oximetry 100 06/19/23 15:28 Oxygen Delivery Me thod Room Air 06/19/23 14:49 MDM - Male Medical Decision Making Patient presents here with sudden onset flank pain he does have a kidney stone no signs of infection he is pains much improved he is stable for discharge we will prescribe him hydrocodone and Zofran getting urology follow-up he is return if worsening he understands agrees to plan. Medical Records I reviewed the patient's medical records. Lab Data I reviewed the patient's lab results. 06/19/23 15:00 06/19/23 15:00 Radiology Impressions Abdomen/Pelvis CT 06/19/23 14:59 IMPRESSION: 1. Mild left-sided hydronephrosis secondary to an obstructive 3-4 mm UVJ stone. 2. Sigmoid diverticulosis with a single mildly inflamed diverticulum, possibly reflecting subacute/mild diverticulitis. Laboratory Results WBC 11.63 10^3/uL (3.29-11.43) H 06/19/23 15:00 RBC 4.67 10^6/uL (3.85-5.65) 06/19/23 15:00 Hgb 14.10 g/dL (11.27-16.99) 06/19/23 15:00 Hct 41.1 % (37-53) 06/19/23 15:00 MCV 88.0 fl (82-101) 06/19/23 15:00 MCH 30.2 pg (27-33) 06/19/23 15:00 MCHC 34.3 g/dL (30-55) 06/19/23 15:00 RDW 12.4 % (12.1-15.1) 06/19/23 15:00 Plt Count 303 10^3/cmm (157-399) 06/19/23 15:00 MPV 9.8 fL (7.4-10.4) 06/19/23 15:00 Neut % (Auto) 56.1 % 06/19/23 15:00 Lymph % (Auto) 36.2 % 06/19/23 15:00 [place] % (Auto) 5.1 % 06/19/23 15:00 Eos % (Auto) 1.6 % 06/19/23 15:00 Baso % (Auto) 0.7 % 06/19/23 15:00 Neut # (Auto) 6.52 10^3/uL (1.8-7.7) 06/19/23 15:00 Lymph # (Auto) 4.2 10^3/uL (0.8-4.8) 06/19/23 15:00 [place] # (Auto) 0.6 10^3/uL (0.2-0.9) 06/19/23 15:00 Eos # (Auto) 0.2 10^3/uL (0.0-0.8) 06/19/23 15:00 Baso # (Auto) 0.1 10^3/uL (0.0-0.1) 06/19/23 15:00 Nucleated RBC % (auto) 0 % 06/19/23 15:00 Nucleated RBCs # 0.0 /100WBC 06/19/23 15:00 Sodium 139 mmol/L (136-145) 06/19/23 15:00 Potassium 3.5 mmol/L (3.5-5.1) 06/19/23 15:00 Chloride 101 mmol/L (98-107) 06/19/23 15:00 Carbon Dioxide 23 mmol/L (22-29) 06/19/23 15:00 Anion Gap 18.5 (5-19) 06/19/23 15:00 BUN 15 mg/dL (6-20) 06/19/23 15:00 Creatinine 1.0 mg/dL (0.7-1.2) 06/19/23 15:00 GFR Calculation 77.9 mL/min (90-130) L 06/19/23 15:00 Glucose 115 mg/dL (65-115) 06/19/23 15:00 Calculated Osmolality 290 mOsm/kg (285-295) 06/19/23 15:00 Calcium 9.8 mg/dL (8.5-10.5) 06/19/23 15:00 Total Bilirubin 0.3 mg/dL (0.15-1.2) 06/19/23 15:00 AST 21 U/L (0-40) 06/19/23 15:00 ALT 21 U/L (0-41) 06/19/23 15:00 Alkaline Phosphatase 126 U/L (40-130) 06/19/23 15:00 Total Protein 7.6 g/dL (6.6-8.7) 06/19/23 15:00 Albumin 4.3 g/dL (3.5-5.2) 06/19/23 15:00 Globulin 3.3 g/dL (1.3-4.6) 06/19/23 15:00 Lipase 24 U/L (13-60) 06/19/23 15:00 Urine Color Yellow (Yellow) 06/19/23 14:55 Urine Appearance Clear (CLEAR) 06/19/23 14:55 Urine pH 5 (5-7) 06/19/23 14:55 Ur Specific [place] 1.025 (1.005-1.030) 06/19/23 14:55 Urine Protein 1+ (Negative) H 06/19/23 14:55 Urine Glucose (UA) Norm (Normal) 06/19/23 14:55 Urine Ketones 1+ (Negative) H 06/19/23 14:55 Urine Blood 3+ (Negative) H 06/19/23 14:55 Urine Nitrate Negative (Negative) 06/19/23 14:55 Urine Bilirubin 1+ (Negative) H 06/19/23 14:55 Urine Urobilinogen 1 mg/dL (Negative) H 06/19/23 14:55 Ur Leukocyte Esterase Trace (Negative) H 06/19/23 14:55 Urine RBC 5-10 /hpf (0-2) H 06/19/23 14:55 Urine WBC 0-4 /hpf (0-5) H 06/19/23 14:55 Ur Squamous Epith Cells Rare /hpf (0-5) 06/19/23 14:55 Amorphous Sediment 1+ /hpf 06/19/23 14:55 Urine Bacteria None /hpf (NONE) 06/19/23 14:55 Urine Mucus 2+ /hpf 06/19/23 14:55 All radiology interpretation(s) finalized by discharge Discharge Plan Discharge Patient Disposition: Home Clinical Impression: Kidney stone Condition: Stable Prescriptions: New hydrocodone-acetaminophen 5-325 mg tablet 1 tab PO Q6H PRN (Reason: pain) Qty: 14 0RF ondansetron 4 mg tablet,disintegrating 4 mg PO Q6H PRN (Reason: nausea and vomiting) Qty: 14 0RF No Action omeprazole 20 mg capsule,delayed release(DR/EC) 20 mg PO DAILY clopidogrel [Plavix] 75 mg tablet 75 mg PO DAILY aspirin 81 mg tablet,delayed release (DR/EC) 81 mg PO QPM nitroglycerin [Nitrostat] 0.4 mg tablet, sublingual 0.4 mg sublingual Q5M PRN (Reason: chest pain) Qty: 90 3RF Rx Instructions: do not exceed 3 doses per episode (DME) cock up wrist splint See Rx Instructions .Route .MEDSUPPLY Qty: 1 0RF Rx Instructions: As directed (DME) cock up wrist splint See Rx Instructions .Route .MEDSUPPLY Qty: 1 0RF Rx Instructions: As directed albuterol sulfate 90 mcg/actuation HFA aerosol inhaler 2 inh inhalation Q4H PRN (Reason: shortness of breath or wheezing) Qty: 8.5 0RF losartan 50 mg Tablet 25 mg PO QPM atorvastatin 80 mg Tablet 80 mg PO QPM docusate sodium 100 mg Capsule 100 mg PO TID PRN (Reason: Constipation) Vitamin D3 50 mcg (2,000 unit) Capsule 50 mcg PO QPM Discharge Orders: Discharge ED (Routine); Ordered 06/19/23 Ordered By: Lubna Lee Referrals: Donato Harvey DO [Primary Care Provider] - 4-7 days Discharge Diet: Advance as tolerated Discharge Activity: Resume usual activity Patient Instructions: Kidney Stones (ED), Opioid Safety Stand Alone Forms: Work/School Release Coding Level of Care Code ED Belting Inspector for Al Winston
[2023-06-19] MEDS: ondansetron 2 mg/ML SDV 2 mL 4 MG IVP (15:04)
[2023-06-19] MEDS: sodium chloride 0.9% 1,000 ML 999 ML IV (15:04)
[2023-06-19 15:06] VITALS: RESP 24; O2SAT 98
[2023-06-19] MEDS: HYDROmorphone 1 mg/mL INJ 1 mL IVP ×2 (15:06→15:28)
[2023-06-19 15:22] VITALS: BP 177/109; PULSE 71; RESP 22; O2SAT 100
[2023-06-19 15:24] LABS: Basophils # 0.1 10^3/uL (0.0-0.1); Basophils % 0.7 %; Eosinophils # 0.2 10^3/uL (0.0-0.8); Eosinophils % 1.6 %; Hematocrit 41.1 % (37-53); Lymphocytes # 4.2 10^3/uL (0.8-4.8); Lymphocytes % 36.2 %; Mean Corpuscular HGB Conc 34.3 g/dL (30-55); Mean Corpuscular Hemoglobin 30.2 pg (27-33); Mean Platelet Volume 9.8 fL (7.4-10.4); Monocytes # 0.6 10^3/uL (0.2-0.9); Monocytes % 5.1 %; Neutrophils # 6.52 10^3/uL (1.8-7.7); Neutrophils % 56.1 %; Nucleated Red Blood Cells % 0 %; Platelet Count 303 10^3/cmm (157-399); Red Blood Count 4.67 10^6/uL (3.85-5.65); Red Cell Distribution Width 12.4 % (12.1-15.1); White Blood Count 11.63 10^3/uL (3.29-11.43)
[2023-06-19 15:28] VITALS: RESP 22; O2SAT 100
[2023-06-19 15:45] LABS: Alanine Aminotransferase 21 U/L (0-41); Albumin Level 4.3 g/dL (3.5-5.2); Alkaline Phosphatase 126 U/L (40-130); Anion Gap 18.5 (5-19); Aspartate Amino Transferase 21 U/L (0-40); Blood Urea Nitrogen 15 mg/dL (6-20); Calcium 9.8 mg/dL (8.5-10.5); Carbon Dioxide 23 mmol/L (22-29); Chloride 101 mmol/L (98-107); Creatinine Clr Calc Pharmacy 103.2908; Globulin 3.3 g/dL (1.3-4.6); Glomerular Filtration Rate 77.9 mL/min (90-130); Glucose 115 mg/dL (65-115); Lipase 24 U/L (13-60); Osmolality Calculated 290 mOsm/kg (285-295); Potassium 3.5 mmol/L (3.5-5.1); Sodium 139 mmol/L (136-145); Total Bilirubin 0.3 mg/dL (0.15-1.2); Total Protein 7.6 g/dL (6.6-8.7)
[2023-06-19 15:48] LABS: Specific Gravity, Urine 1.025 (1.005-1.030); Urine Appearance Clear (CLEAR); Urine Color Yellow (Yellow); pH Urine 5 (5-7)
[2023-06-19 15:49] LABS: Add Urine Culture? No; Add Urine Microscopic? YES; Amorphous Sediment Urine 1+ /hpf; Bilirubin Urine 1+ (Negative); Blood Urine 3+ (Negative); Glucose Urine UA Norm (Normal); Ketones Urine 1+ (Negative); Leukocyte Esterase Urine Trace (Negative); Mucus Urine 2+ /hpf; Nitrate Urine Negative (Negative); Protein Urine 1+ (Negative); Squamous Epithelial Cell Urine RARE /hpf (0-5); Urobilinogen Urine 1 mg/dL (Negative); WBC Urine 0-4 /hpf (0-5)
[2023-06-19] MEDS: HYDROcodone-acetaminophen 7.5-325 mg Tablet 1 TAB PO (16:06)
[2023-06-19 16:09] VITALS: BP 163/112; PULSE 75; O2SAT 99
--- NOTE | 2023-06-20 09:39 | DCPLANNER ---
Urology referral sent to [facility] urology [facility]
== END 2023-06-19 16:12 | disposition home or self-care (01) ==
PROVIDERS: Emergency Provider Emergency Medicine; PCP Emergency Medicine Emergency Medical Services
DX: N20.0 Calculus of kidney (principal); Z79.02 Long term (current) use of antithrombotics/antiplatelets; Z79.82 Long term (current) use of aspirin; Z72.0 Tobacco use; I25.2 Old myocardial infarction; E78.5 Hyperlipidemia, unspecified
CPT/HCPCS: 74176; 80053; 81001; 83690; 85025; 96374; 96375; 99285; J1170; J2405; J7030

== ENCOUNTER → 2023-10-04 09:00 | Outpatient (BNVA) | payer OTHER, SELFPAY | PROVIDERS: PCP Emergency Medicine Emergency Medical Services; Visit Provider Nurse Practitioner Family | DX: L57.0 Actinic keratosis (principal); L82.1 Other seborrheic keratosis; L81.4 Other melanin hyperpigmentation; L57.8 Other skin changes due to chronic exposure to nonionizing radiation; D22.39 Melanocytic nevi of other parts of face; M67.432 Ganglion, left wrist; B35.3 Tinea pedis; Z85.820 Personal history of malignant melanoma of skin; Z80.8 Family history of malignant neoplasm of other organs or systems | CPT/HCPCS: 17000; 99214 ==

== ENCOUNTER 2024-01-10 11:39 | Outpatient (CLI) | payer OTHER, SELFPAY ==
--- NOTE | 2024-01-10 11:43 | CTR_ITS ---
PROCEDURE INFORMATION: Exam: CT Chest With Contrast; Diagnostic Exam date and time: 01/10/2024 12:18 PM Age: 53 years old Clinical indication: Condition or disease; Lung condition and disease; Pulmonary nodule, solitary; Prior surgery; Surgery date: 6+ months; Surgery type: 2 stents; Additional info: 1 yr follow up on nodules TECHNIQUE: Imaging protocol: Diagnostic computed tomography of the chest with contrast. Radiation optimization: All CT scans at this facility use at least one of these dose optimization techniques: automated exposure control; mA and/or kV adjustment per patient size (includes targeted exams where dose is matched to clinical indication); or iterative reconstruction. Contrast material: OMNI 350; Contrast volume: 100 ml; Contrast route: INTRAVENOUS (IV); COMPARISON: CT chest w con* [id number] 02/06/2023 8:55 AM RADIATION DOSE METRICS: Total DLP (mGy-cm): 491.61 FINDINGS: Thyroid: Grossly unremarkable. Lungs: No focal consolidation. Again seen are small bilateral pulmonary nodules in both lower lobes measuring up to 5 mm. No new, enlarging or suspicious pulmonary nodules. Pleural spaces: No pleural effusion. No pneumothorax. Heart: No cardiomegaly. No pericardial effusion. Mediastinal space: Trachea and central airways are grossly patent. No evidence of mediastinal mass or hematoma. Lymph nodes: No evidence of mediastinal or hilar adenopathy. Vasculature: No aneurysmal dilatation of the thoracic aorta. No evidence of dissection. Though this study is not tailored to evaluate for pulmonary thromboembolism, there is no evidence of PE within limitations of respiratory motion. Bones/joints: No evidence of acute fracture or aggressive osseous lesion. Soft tissues: No fluid collection or hematoma in the superficial soft tissues. Other findings: No evidence of acute abnormality in the upper abdomen. CT/CT chest w con* [id number] IMPRESSION: 1. No new, enlarging or suspicious pulmonary nodules.
[2024-01-10] MEDS: iohexol 350 mg/mL 500 mL Btl (per mL) IV (12:25)
== END 2024-01-10 11:40 | disposition home or self-care (01) ==
LOC: RAD 11:41
PROVIDERS: Visit Provider Emergency Medicine Emergency Medical Services
DX: R91.8 Other nonspecific abnormal finding of lung field (principal)
CPT/HCPCS: 71260

== ENCOUNTER → 2024-03-21 12:34 | Outpatient (BNVA) | payer OTHER, SELFPAY | PROVIDERS: Visit Provider Internal Medicine Cardiovascular Disease | DX: I25.10 Atherosclerotic heart disease of native coronary artery without angina pectoris (principal); E78.49 Other hyperlipidemia; Z87.891 Personal history of nicotine dependence | CPT/HCPCS: 99214 ==

== ENCOUNTER → 2024-04-05 07:51 | Outpatient (BNVA) | payer OTHER, SELFPAY | PROVIDERS: Visit Provider Nurse Practitioner Family | DX: M67.432 Ganglion, left wrist (principal); L57.8 Other skin changes due to chronic exposure to nonionizing radiation; L81.4 Other melanin hyperpigmentation; Z08 Encounter for follow-up examination after completed treatment for malignant neoplasm; Z85.820 Personal history of malignant melanoma of skin; L57.0 Actinic keratosis | CPT/HCPCS: 17000; 99213 ==

== ENCOUNTER 2024-04-30 06:17 | Outpatient (CLI) | payer OTHER, SELFPAY ==
[2024-04-30 06:31] VITALS: BMI 26.4
--- NOTE | 2024-04-30 06:31 | ECG_ITS ---
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 Interpretive Statements EXERCISE MIBI EXERCISE DATA: The patient was exercised by Kamar protocol. Baseline heart rate was 76 beats per minute. Baseline blood pressure was 127/79 millimeters of mercury. Maximal predicted heart rate was 165 beats per minute. Maximum heart rate achieved was 149 which was 90% of the maximum predicted heart rate. Maximum blood pressure was 203/83 millimeters of mercury. Total exercise time was 12 minutes and 2 seconds. Maximum METs achieved was 14.6. The reason for ending the test was completion of protocol. The patient complained of shortness of breath during the stress test, which then resolved at the end of the test. ELECTROCARDIOGRAM: BASELINE: Showed sinus rhythm, normal axis, no significant ST-T changes at the baseline noted. [] EXERCISE: At the peak exercise level, [] No significant ST-T changes suggestive of ischemia noted. [] RECOVERY: During the recovery period, heart rate dropped appropriately. No significant ST-T changes in the recovery suggestive of ischemia noted. [] CONCLUSION: 1. Exercise capacity is excellent 2. Heart rate response was appropriate 3. Blood pressure response was appropriate. 4. Symptoms not suggestive of ischemia. 5. Electrocardiogram portion of the stress test was not suggestive of ischemia. 6. Nuclear scan will be documented separately. Electronically Signed On 05-08-2024 12:29:26 MECHANIC/WELDER by Bashir Black M.D. [email or web address]
--- NOTE | 2024-04-30 06:32 | NMCV_ITS ---
NM estela perf SPECT r/s* [id number] Luiz Buckley Age: 54 Gender: M : 1970 Exam Date: 04/30/2024 06:32 Ordering Phys: Beau Vernon MD ([email or web address]) Technologist: CARSON Hart Exam Location: [facility] Indications: cp STRESS TEST Please see separate stress test report in [facility] for full findings IMAGE PROTOCOL Rest/Stress 1 Exercise Day Radiopharmaceutical Dose (mCi) Administration Site Administered by Rest: Tc-99m 10.7 IV CARSON Hart Sestamibi Stress:Tc-99m 32.8 IV CARSON Logan Sestamibi Rest: 30-Apr-2024 60 Discovery 630 Stress: 30-Apr-2024 15 Discovery 630 Radiopharmaceutical was injected at 86_ % maximum heart rate. Images obtained in supine and prone position. SPECT RESULTS Technical Quality: Good Raw Data Analysis: Normal Image Corrections: No attenuation or motion correction applied Summed Stress Score: 0 Summed Rest Score: 0 Summed Difference Score: 0 PERFUSION FINDINGS SPECT images demonstrate homogeneous tracer distribution throughout the myocardium. FUNCTIONAL RESULTS (calculated via Gated SPECT) Stress Image LV EF (%): 70 Stress EDV (mL):99 TID: 0.94 Stress ESV (mL):30 FUNCTIONAL FINDINGS: There is normal left ventricular systolic function. IMPRESSIONS Myocardial perfusion imaging is normal. Beau Vernon MD (Electronically Signed) Final Date: 30 April 2024 10:10 S
[2024-04-30 08:33] VITALS: BP 122/74; PULSE 99
== END 2024-04-30 06:18 | disposition home or self-care (01) ==
LOC: CDL 06:19
PROVIDERS: Visit Provider Internal Medicine Cardiovascular Disease
DX: R07.9 Chest pain, unspecified (principal); Z02.89 Encounter for other administrative examinations
CPT/HCPCS: 36415; 78452; 93017; A9500

== ENCOUNTER 2024-10-20 13:17 | Emergency (ER) | payer OTHER, SELFPAY ==
--- OUTSIDE RECORDS SUMMARY | 2024-09-20 06:10 | XMS_ITS | Encounter Summary ---
Author Name [facility] [place] [facility] [place] Address [address] [place] [address] Care Team Providers Care Sexual Health Physician Name Role Phone ENRIQUETA LAWANDA Primary Care Provider Unavail able Insurance Providers: All historical and current Section Date Range: From patient's date of to the date document was created. This section includes the names of all active insurance providers for the patient. Insurance Provider Type of Coverage Plan Name Start of Policy Coverage End of Policy Coverage Group Number Member ID Insurance Provider's Telephone Number Policy Tapia's Name Patient's Relationship to Policy Tapia [facility] [place] [facility] Nov 05, 2015 [id number] [phone] Jerry BUCKLEY PATIENT [employer] PRESCRIPT ION HMO Nov 05, 2015 [facility] [id number] [phone] Jerry BUCKLEY PATIENT [employer] PREFERRED PROVIDER ORGANIZAT ION (PPO) NATHAN ALBERTS , Mar 06, 2015 [id number] [phone] Jerry BUCKLEY PATIENT [facility] [place] [facility] Nov 05, 2015 [id number] [phone] BUCKLEY PATIENT [facility] [place] Nov 05, 2015 [id number] Jerry BUCKLEY PATIENT Selected Encounter This section includes the information on record at [place] for the Encounter. Date/Time Encounter Type Encounter Description Reason Provider Source Sep 20, 2024 11:10 AM Outpatient Encounter ADMIN PAT ACTIVTIES (MASNONCT) WILLIAM JI Encounter Template Text not used by [place] Plan of Treatment: Future Appointments (+ 6 months) and Future Tests (+/- 45 days) The Plan of Treatment section includes future care activities for the patient from all [place] treatmentfacilities. This section includes future appointments and future orders which are active, pending or scheduled. Future Appointments This section includes appointments that were scheduled to occur 6 months from the date of the Encounter, up to a maximum of 20 appointments. The data comes from all [place] treatment facilities. Appointment Date/Time Appointment Type Appointme nt Facility Name Oct 04, 2024 09:30 AM AMBULATORY - PSYCHIATRY [facility] Oct 14, 2024 09:00 AM AMBULATORY - MEDICINE [facility] Dec 12, 2024 10:45 AM AMBULATORY - MEDICINE [facility] Dec 31, 2024 08:30 AM AMBULATORY - MEDICINE [facility] Active, Pending, and Scheduled Orders This section includes a listing of several types of active, pending, and scheduled orders, including clinic medications orders, diagnostic test orders, procedure orders and consult orders; where the start date of the order is 45 days before the date of the Encounter or 45 days after the date of theEncounter. The data comes from all [place] treatment [facility]. Test Date/Time Test Type Test Details Facility Name Oct 14, 2024 09:32 AM Consult Order [facility] ACUPUN[facility] [id number] Cons Glass Mould Cleaner's [facility] Oct 15, 2024 05:58 PM Consult Order PROSTHETIC S REQUEST - FLOW SHOES AND INSERTS [id number] Cons Glass Mould Cleaner's [facility] Advance Directives: All historical and current Section Date Range: From patient's date of to the date document was created. This section includes ALL of a patient's completed or amended [facility] Advance and Rescinded Directives. The entries below indicate that a directive exists for the patient, but an actual copy is not included with this document. The data comes from all [facility] facilities. Date Advance Directives Provider Source Mar 28, 2012 ADVANCE DIRECTIVE DISCUSSION [facility] Radiology Reports: +/- 30 days of the encounter Radiology Reports For cases when an order for radiology services may have been completed prior to the date of the Encounter, the report list includes the Radiology Reports that were completed up to 30 days before dateof the Encounter. For cases when an order for radiology services may have been completed after the date of the Encounter, the report list also includes the Radiology Reports that were completed up to30 days after date of the Encounter. The data comes from all [place] treatment facilities. Date/Time Radiology Report Provider Source Sep 19, 2024 08:36 AM LDCT LUNG CANCER S CREENING: COURTNEY BUCKLEY [id number] -1970 M Exm Date: SEP 19, 2024@08:36 Req Phys: LAWANDA ROBISON Loc: PB-[facility] PACT CHAYITO CATTLE FEEDER (Req Img Loc: PB-CT IMAGING Service: Unknown [facility] [id number] (Case [id number] COMPLETE) LDCT LUNG CANCER SCREENING (CT Detailed) CPT:09880 Reason for Study: screening Clinical History: Responsible Attending: Enriqueta Attending Contact Number: [phone] Resident Contact Number: Report Status: Verified Date Reported: SEP 19, 2024 Date Verified: SEP 19, 2024 Blast Furnace Keeper Helper E-[email or web address] PABON Report: EXAM: LDCT LUNG CANCER SCREENING ADDITIONAL HISTORY: N/A COMPARISON: None PROTOCOL: Screening protocol, low dose, non-contrast CT chest was performed at the local [place] facility in accordance with Lung-Rads 2022. Additional coronal and sagittal reconstructions. MIP reconstructions were reviewed. Secondary computer-aided detection post-processing used. RADIATION DOSE: CTDI(vol): 2.8 mGy DLP: 115.7 mGy*cm INDEX NODULE: No suspicious pulmonary nodule. OTHER NODULES: 5.3 mm nodule with volume estimated at 56.6 cu mm, located in the lateral infrahilar left lung and best seen on lung window settings on series #8 image 475, 4.8 mm nodule with volume estimated at 26.93 mm, located in the lateral infrahilar right lung and best seen on lung window settings on series #8 image 445 and 4.5 mm nodule with volume estimated at 27.3 cu mm, located in the lateral parahilar right lung and best seen on lung window settings on series #8 image #335. LUNG/AIRWAY FINDINGS: Occasional interstitial scar occasional calcified granuloma. No active infiltrate. No pleural effusion. No airway lesion. EMPHYSEMA: Mild HEART, MEDIASTINUM AND LYMPH NODES: No significant abnormalities. VISUAL CORONARY ARTERY CALCIFICATIONS: Mild UPPER ABDOMEN: Unremarkable. BONES, SOFT TISSUES, AND ADDITIONAL FINDINGS: Degenerative skeletal changes with the multilevel disc disease and minimal scoliosis. No acute osseous abnormality. Impression: 1. Chronic findings as noted 2. Lung nodules as annotated 3. Lung RADS 2 LUNG-RADS: 2: Benign. RECOMMENDATION: 1 year follow-up low-dose CT LUNG-RADS MODIFIER: N/A. Primary Interpreting Staff: JUANY PABON, RADIOLOGIST (Blast Furnace Keeper Helper) /JUANY De Souza [facility] Encounter Notes: All associated encounter notes This section contains the clinical notes associated to the Encounter. Date/Time Encounter Note(s) Provider Source Sep 20, 2024 11:17 AM PRIMARY CARE TIFFANIE RS: LOCAL TITLE: TEST RESULT LETTER PB STANDARD TITLE: PRIMARY CARE LETTERS DATE OF NOTE: SEP 20, 2024@11:17 ENTRY DATE: SEP 20, 2024@11:17:23 AUTHOR: WILLIAM JI COSIGNER: URGENCY: STATUS: COMPLETED [facility] [address] [place], [place] [address] SEP 20, 2024 COURTNEY BUCKLEY [address] [facility] [address] [place], [place] [address] Dear Rain Buckley, Thank you for completing your Lung Cancer Screening Imaging. You are very important to us. Lung cancer is treatable, and patients do better if it is found early. The national recommendation for Lung Cancer Screening is to continue through age 80 and/or until you have been cigarette free for 15 years. RADIOLOGY(NON-INVASIVE TEST RESULTS):Low Dose CT for Lung Cancer Screening DATE of EXAM: 09/19/24 Findings: No suspicious pulmonary nodules. Lung-RADS category 2: Benign appearance or behavior. Nodules with a very low likelihood of becoming a clinically active cancer due to size or lack of growth. MANAGEMENT RECOMMENDATION: Continue annual screening with low-dose CT in 12 months. You will be due for your next Lung Cancer Screen imaging September 2025. If you have a cold or any lung congestion when you are due for your next screen, it is best to reschedule for 3-4 weeks to allow time for potential mucous to clear. Lung cancer screening can detect lung cancer, but it does not prevent it. Rarely, a CT scan can miss a small lung cancer. Contact your primary care provider if you develop new symptoms like worsening shortness of breath, change in a cough, or coughing up blood. Should you have any questions, and/or need assistance to stop if remain smoking, please contact your Primary Care provider. [facility] SMOKING CESSATION: [phone] (group/individual support) and clinical pharmacy for smoking cessation medication modalities. OTHER SMOKING CESSATION RESOURCES: 8-382-TXGM-VET (1:1 coaching) and jobsite123.smokefree.gov We understand that quitting cigarette smoking is difficult, but it is the best way to improve your health. FUTURE APPOINTMENTS: 10/04/2024 09:30 PB-[facility] IND SWS CRI 10/14/2024 09:00 PB-CATALINO PACT FOXTROT CATTLE FEEDER WH 12/31/2024 08:30 PB-CATALINO PACT FOXTROT CATTLE FEEDER WILLIAM JI [facility] Sep 20, 2024 11:10 AM PRIMARY CARE DIAGN OSTIC STUDY NOTE: LOCAL TITLE: LDCT INITIAL NOTE PB STANDARD TITLE: PRIMARY CARE DIAGNOSTIC STUDY NOTE DATE OF NOTE: SEP 20, 2024@11:10 ENTRY DATE: SEP 20, 2024@11:10:15 AUTHOR: WILLIAM JI COSIGNER: URGENCY: STATUS: COMPLETED TRACKING OF NODULE INDICATED: Date of current image: Date: September 19, 2024 Lung RADS Score: 2 Incidental Findings: No incidental findings were noted. Plan: Interval until next LDCT scan is due: 12 months Patient Notification of results: Results letter sent to patient. Comment: 1ppd x 38yrs. Current Smoker. /natalia/ William Ji RN [facility] Signed: 09/20/2024 11:19 WILLIAM JI [facility]
--- OUTSIDE RECORDS SUMMARY | 2024-10-14 04:00 | XMS_ITS | Encounter Summary ---
Author Name [facility] [facility] [place] [facility] [facility] [place] Address [address] [place] [address] Care Team Providers Care Digital Imaging Technician Name Role Phone LAWANDA ROBISON Primary Care Provider Unavail able Insurance Providers: [...] Tapia's Name Patient's Relationship to Policy [facility] Nov 05, 2015 [id number] [phone] Jerry MARIN PATIENT [employer] PRESCRIPT ION HMO Nov 05, 2015 [facility] [id number] [phone] Jerry MARIN PATIENT [employer] PREFERRED PROVIDER ORGANIZAT ION (PPO) NATHAN ALBERTS , Mar 06, 2015 [id number] [phone] Jerry MARIN PATIENT [facility] Nov 05, 2015 [id number] [phone] Jerry MARIN PATIENT [facility] POINT OF SERVICE [facility] [facility] Nov 05, 2015 [id number] Jerry MARIN PATIENT Selected Encounter This section includes the information on record at [place] for the Encounter. Date/Time Encounter Type Encounter Description Reason Provider Source Oct 14, 2024 09:00 AM OFFICE O/P EST MOD 30 MIN PRIMARY CARE/MEDICINE ICD-10-CM F32.A Depression, unspecified ROBISON,CATHER INE R IHE Encounter Template Text not used by [place] Assessments - Encounter Diagnoses This section includes the primary and secondary diagnoses documented for the Encounter. Date/Time Primary/Secondary Diagnosis Diagnosis Name Provider Source Oct 14, 2024 11:57 PM PRIMARY Depression, unspecified ROBISON,CATHER INE R [facility] Oct 14, 2024 11:57 PM SECONDARY Anxiety disorder, unspecified ROBISON,CATHER INE R [facility] Oct 14, 2024 11:57 PM SECONDARY Nicotine dependence, cigarettes, uncomplicated ROBISON,CATHER INE R [facility] Oct 14, 2024 11:57 PM SECONDARY Plantar fascial fibromatosis ROBISON,CATHER INE R [facility] Plan of Treatment: Future Appointments (+ 6 months) and Future Tests (+/- 45 days) The Plan of Treatment section includes future care activities for the patient [facility] [place] [facility] This section includes future appointments and future orders which are active, pending or scheduled. Future Appointments This section includes appointments that were scheduled to occur 6 months from the date of the Encounter, up to a maximum of 20 appointments. The data comes from all [place] treatment facilities. Appointment Date/Time Appointment Type Appointme nt Facility Name Dec 12, 2024 10:45 AM AMBULATORY - MEDICINE [facility] Dec 31, 2024 08:30 AM AMBULATORY - MEDICINE [facility] Active, Pending, and Scheduled Orders This section includes a listing of several types of active, pending, and scheduled orders, including clinic medications orders, diagnostic test orders, procedure orders and consult orders; where the start date of the order is 45 days before the date of the Encounter or 45 days after the date of theEncounter. The data comes from all [place] treatment [facility]. Test Date/Time Test Type Test Details Facility Name Oct 14, 2024 09:32 AM Consult Order [facility] ACUPUNCTURE [id number] Cons Carbon Sequestration Plant Engineer's Choice [facility] Oct 15, 2024 05:58 PM Consult Order PROSTHETIC S REQUEST - FLOW SHOES AND INSERTS [id number] Cons Carbon Sequestration Plant Engineer's [facility] Vital Signs: All taken on the encounter date This section contains inpatient and outpatient Vital Signs collected on the date of the Encounter. Date/Time Temperature Pulse Blood Pressure Respiratory Rate SP02 Pain Height Weight Body Mass Index Source Oct 14, 2024 09:07 AM 61 /min 135/88 mm[Hg] 16 /min 97 % 72.0 in 211.8 lb 29 [facility] Social History: Smoking Status (Most current) and Tobacco Use (All prior to encounter date) This section includes the most current, and the historical, smoking and tobacco- related health factors from the [place] facility where the Encounter took place. Current Smoking Status This section includes the most current smoking, or tobacco-related health factor, from the [place] facility where the Encounter took place. Date/Time Current Smoking Status Comment Facil ity Sep 13, 2024 09:00 AM VA-TOBACCO USE EVERY DAY CIGARET KAIA [facility] Tobacco Use History This section includes a history of the smoking, or tobacco-related health factors, that were collected on or before the date of the Encounter. The data comes from the [place] facility where the Encounter took place. Date/Time Smoking Status/Tobacco Use Comment F acility Sep 13, 2024 09:00 AM VA-TOBACCO SCREEN FOLLOW-UP [facility] Sep 13, 2024 09:00 AM VA-TOBACCO USE ADVICE [facility] Sep 13, 2024 09:00 AM VA-TOBACCO USE CERTIFIED ADAPTED PHYSICAL EDUCATOR NO [facility] Sep 13, 2024 09:00 AM VA-TOBACCO USE JANELLE RY DAY CIGARETTES [facility] Sep 13, 2024 09:00 AM VA-TOBACCO USE MED NO [facility] Dec 08, 2022 08:30 AM VA-TOBACCO USE 30 YEARS OR MORE [facility] Dec 08, 2022 08:30 AM VA-TOBACCO USE ADVICE [facility] Dec 08, 2022 08:30 AM VA-TOBACCO USE CERTIFIED ADAPTED PHYSICAL EDUCATOR NO [facility] Dec 08, 2022 08:30 AM VA-TOBACCO USE MED NO [facility] Dec 08, 2022 08:30 AM VA-TOBACCO USE WI 30 MIN OF WAKEUP [facility] Dec 08, 2022 08:30 AM VA-TOBACCO USER EVERY DAY [facility] Oct 13, 2021 11:30 AM VA-TOBACCO USE > 1 5 LESS THAN 30 YEARS [facility] Oct 13, 2021 11:30 AM VA-TOBACCO USE ADVICE [facility] Oct 13, 2021 11:30 AM VA-TOBACCO USE CERTIFIED ADAPTED PHYSICAL EDUCATOR NO [facility] Oct 13, 2021 11:30 AM VA-TOBACCO USE MED NO [facility] Oct 13, 2021 11:30 AM VA-TOBACCO USE WI 30 MIN OF WAKEUP [facility] Oct 13, 2021 11:30 AM VA-TOBACCO USER EVERY DAY [facility] Mar 11, 2020 09:00 AM VA-TOBACCO USE > 1 5 LESS THAN 30 YEARS [facility] Mar 11, 2020 09:00 AM VA-TOBACCO USE ADVICE [facility] Mar 11, 2020 09:00 AM VA-TOBACCO USE CERTIFIED ADAPTED PHYSICAL EDUCATOR NO [facility] Mar 11, 2020 09:00 AM VA-TOBACCO USE MED NO [facility] Mar 11, 2020 09:00 AM VA-TOBACCO USE WI 30 MIN OF WAKEUP [facility] Mar 11, 2020 09:00 AM VA-TOBACCO USER EVERY DAY [facility] Mar 07, 2019 11:03 AM VA-TOBACCO USE 5 TO 15 YEARS [facility] Mar 07, 2019 11:03 AM VA-TOBACCO USE ADVICE [facility] Mar 07, 2019 11:03 AM VA-TOBACCO USE CERTIFIED ADAPTED PHYSICAL EDUCATOR NO [facility] Mar 07, 2019 11:03 AM VA-TOBACCO USE MED NO [facility] Mar 07, 2019 11:03 AM VA-TOBACCO USE WI 30 MIN OF WAKEUP [facility] Mar 07, 2019 11:03 AM VA-TOBACCO USER EVERY DAY [facility] Dec 27, 2017 01:45 PM CURRENT TOBACCO USER [facility] Dec 27, 2017 01:45 PM CURRENT TOBACCO US ER (READY TO QUIT) [facility] Dec 27, 2017 01:45 PM SMOKELESS TOBACCO AMOUNT/LENGTH V15 since 14y/o [facility] Dec 27, 2017 01:45 PM TOBACCO CESSATION REFERRAL DECLINED [facility] Dec 27, 2017 01:45 PM TOBACCO USER OFFERED [facility] Advance Directives: All historical and current Section Date Range: From patient's date of to the date document was created. This section includes ALL of a patient's completed or amended [place] Advance and Rescinded Directives. The entries below indicate that a directive exists for the patient, but an actual copy is not included with this document. The data comes from all [place] facilities. Date Advance Directives Provider Source Mar 28, 2012 ADVANCE DIRECTIVE DISCUSSION [facility] Radiology Reports: +/- 30 days of the [...] the Encounter. The data comes from all [place] treatment facilities. Date/Time Radiology Report Provider Source Sep 19, 2024 08:36 AM LDCT LUNG CANCER S CREENING: COURTNEY MARIN [id number] [id number] Exm Date: SEP 19, 2024@08:36 Req Phys: LAWANDA ROBISON Loc: PB-[facility] PACT [facility]AYITO VERONICA (Req Img Loc: PB-CT IMAGING Service: [place] [address] (Case [id number] COMPLETE) LDCT LUNG CANCER SCREENING (CT Detailed) CPT:13657 Reason for Study: screening Clinical History: Responsible Attending: Junito Attending Contact Number: [id number] Resident Contact Number: Report Status: Verified Date Reported: SEP 19, 2024 Date Verified: SEP 19, 2024 Boilers Inspector E-Sig:/ES/JUANY PABON Report: EXAM: LDCT LUNG CANCER SCREENING ADDITIONAL HISTORY: N/A COMPARISON: None PROTOCOL: Screening protocol, low dose, non-contrast CT chest was performed at the local [place] facility in accordance with Lung-Rads 2. Additional coronal and sagittal reconstructions. MIP reconstructions [...] N/A. Primary Interpreting Staff: JUANY PABON, RADIOLOGIST (Boilers Inspector) /JUANY De Souza [facility] Encounter Notes: All associated encounter notes This section contains the clinical notes associated to the Encounter. Date/Time Encounter Note(s) Provider Source Oct 14, 2024 09:32 AM PRIMARY CARE PROGR ESS NOTE: LOCAL TITLE: PRIMARY CARE CLINIC PROGRESS NOTE PB STANDARD TITLE: PRIMARY CARE PROGRESS NOTE DATE OF NOTE: OCT 14, 2024@09:32 ENTRY DATE: OCT 14, 2024@09:32:48 AUTHOR: LAWANDA ROBISONIGNER: URGENCY: STATUS: COMPLETED PROVIDER ASSESSMENT DATE & TIME:Oct@09:32 CHIEF COMPLAINT: One month follow up on anxiety/mood. HISTORY OF PRESENT ILLNESS: [place] is being seen for one month follow up on anxiety and mood. states he has not noticed a huge difference with the propranolol. [place] states he is coping with his stress slightly better but his mood is still decreased. He is willing to try something to help with his grief, depression, and anxiety. will be started on low dose sertraline. He is interested in some hypnosis to stop smoking a consult will be placed. also has some plantar fasciitis that he would like insoles for. 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: 1) CAD - Coronary Artery Disease ([facility] [id number]) 2) HTN - Hypertension ([facility] [id number]) 3) History of myocardial infarction 4) History of angioplasty 5) GERD - Gastro-Esophageal Reflux Disease ([facility] [id number]) 6) Sleep Apnea ([facility] [id number]) 7) Hyperlipidemia ([facility] [id number]) 8) Prediabetes 9) Acute COVID-19 10) Multiple nodules of lung 11) Diverticulitis of sigmoid colon 12) Polyp Colon ([facility] [id number]) 13) Depressive disorder 14) Anxiety 15) Posttraumatic stress disorder Active Outpatient Medications (including Supplies): Active Outpatient Medications Status 1) ALBUTEROL 90MCG (CFC-F) 200D ORAL INHL INHALE 2 PUFFS BY ACTIVE ORAL INHALATION FOUR TIMES A DAY SHAKE WELL. RINSE MOUTHPIECE FREQUENTLY TO PREVENT CLOGGING. Indication: FOR ASTHMA 2) ATORVASTATIN CALCIUM 80MG TAB TAKE ONE TABLET BY MOUTH EVERY ACTIVE EVENING FOR CHOLESTEROL. REPORT ANY UNEXPLAINED MUSCLE PAIN/WEAKNESS TO PROVIDER. 3) CLOPIDOGREL BISULFATE 75MG TAB TAKE ONE TABLET BY MOUTH ONCE ACTIVE (S) A DAY Indication: FOR ACUTE CORONARY SYNDROME 4) OMEPRAZOLE 40MG EC CAP TAKE ONE CAPSULE BY MOUTH EVERY ACTIVE (S) MORNING BEFORE A MEAL TAKE 30 MINUTES PRIOR TO FOOD. Indication: FOR GASTROESOPHAGEAL REFLUX DISEASE 5) PROPRANOLOL HCL 60MG SA CAP TAKE ONE CAPSULE BY MOUTH ONCE A ACTIVE DAY Indication: FOR HIGH BLOOD PRESSURE REVIEW OF SYSTEMS: HEENT: No Headache. No blurry vision, vision loss, eye pain, red eyes, or foreign body. No runnynose, congestion, or nose bleed. No hearing loss, ringing in the ears, or vertigo. No sore throat or dental pain. RESPIRATORY: No cough, SOA, wheezing, or sputum production. CARDIOVASCULAR: No chest pain, palpitations, tachycardia, PND, or orthopnea. GI: No abdominal pain, nausea, vomiting, diarrhea, constipation, melena, or hematochezia. : No dysuria, hematuria, urinary frequency, weak stream, or post-void dribbling. MUSCULOSKELETAL:No muscle or joint pain. SKIN: No rash, lesions, or infection PSYCH: Positive depression and anxiety. Not suicidal. PHYSICAL ASSESSMENT: VITAL SIGNS Pulse: 61 (10/14/2024 09:07) Blood Pressure: 135/88 (10/14/2024 09:07) Respiratory Rate: 16 (10/14/2024 09:07) Temperature: 97.6 F [36.4 C] (09/13/2024 09:45) Weight: 211.8 lb [96.07 kg] (10/14/2024 09:07) Height: 72.0 in [182.9 cm] (10/14/2024 09:07) Pain: 2 (12/08/2022 08:35) CARDIAC: Regular rate and rhythm without murmur. No edema. RESPIRATORY: CTA, BEBS GI: Abdomen soft,with ABS, no HSM, no guarding or rebound. MUSCULOSKELETAL:Bilateral foot pain on soles of feet. FROM. SKIN: [place] without rash or lesions. NEUROLOGICAL: The is alert and oriented without distress. Affect appropriate. IMPRESSION: Depression-current Anxiety-current Plantar Fasciitis-current Nicotine Dependence-current PLAN: Will order prosthetics. Increase water intake. Start zoloft 25mg daily. Will refer to ent. RTC as previously scheduled. Patient is advised this primary care clinic has open access and he can make a same day appointment anytime a problem/concern arises. Patient further advised he can be seen on a walk-in basis as needed. Patient is provided clinic contact information. Medications reviewed and reconciled. Opportunity provided to report concerns and ask questions. Discussed diet and exercise as relevant to patient conditions. Please refer to addendum or follow up lab letter for plan of care/changes related to lab/test results not available at conclusion of appointment, if any. Discussed with patient that in the event of community imaging / testing being ordered in the future, once the imaging / testing has been completed, please notify PACT of within 1 week by a VA PACT member; this is due to intermittent lapses in notification of imaging completion within CPRS. All questions answered; agrees to plan of care. Follow up as listed above, annually, and as needed. Keep all completion at outside facility if not called with results appointments. Medications Reconciled. Time spent 30 minutes. /es/ DEIDRE YoonP-AUBREY [place] [facility] Signed: 10/14/2024 23:56 LAWANDA ROBISON [facility] CB Oct 14, 2024 09:08 AM PRIMARY CARE NURSI NG NOTE: LOCAL TITLE: PRIMARY CARE NURSING PROGRESS NOTE (TEXT) NURSING P STANDARD TITLE: PRIMARY CARE NURSING NOTE DATE OF NOTE: OCT 14, 2024@09:08 ENTRY DATE: OCT 14, 2024@09:08:07 AUTHOR: LYNETTE CARRANZA EXP COSIGNER: URGENCY: STATUS: COMPLETED Established Patient COURTNEY MARIN IS A 54 YEAR OLD MALE BEING SEEN IN CLINIC OCT 14, 2024. = = REASON FOR VISIT: 1 month follow up for anxiety, Htn, Joint pain. He states he has seen Mental health and believes it is related to his PTSD. He states that still has Joint pain. He states he has not been logging his BP as he reports he is too lazy . Verified he is taking his medications as indicated. Are you receiving care any where other than the [facility]? No HEALTH AND SURGICAL HISTORY: Does patient report using home oxygen? No CURRENT ACTIVE MEDICATIONS FOR REVIEW: If the list for review does not include a component, then it was not applicable to this patient. Allergies/ADRs (Tool #5) FACILITY ALLERGY/ADR -------- [facility] NO KNOWN ALLERGIES [facility] AT[facility]VASTATIN [facility] No Known Allergies Med. Reconciliation (Tool #1) INCLUDED IN THIS LIST: Alphabetical list of active outpatient prescriptions dispensed from this [place] (local) and dispensed from another [place] or [facility] facility (remote) as well as inpatient orders (local pending and active), local clinic medications, locally documented non-VA medications, and local prescriptions that have or been discontinued in the past 90 days. Non-VA Meds Last Documented On: Data not found NOTE The display of VA prescriptions dispensed from another [place] or [facility] facility (remote) is limited to active outpatient prescription entries matched to National Drug File at the originating site and may not include some items such as investigational drugs, compounds, etc. NOT INCLUDED IN THIS LIST: Medications self-entered by the patient into personal health records (i.e. [employer]) are NOT included in this list. Non-VA medications documented outside this [place], remote inpatient orders (regardless of status) and remote clinic medications are NOT included in this list. The patient and provider must always discuss medications the patient is taking, regardless of where the medication was dispensed or obtained. OUTPT ALBUTEROL 90MCG (CFC-F) 200D ORAL INHL (Status = Active) INHALE 2 PUFFS BY ORAL INHALATION FOUR TIMES A DAY FOR ASTHMA SHAKE WELL. RINSE MOUTHPIECE FREQUENTLY TO PREVENT CLOGGING. Rx# [id number] Last Released: 01/09/24 Qty/Days Supply: Rx Expiration Date: 01/04/25 Refills Remainin Indication: FOR ASTHMA OUTPT ATORVASTATIN CALCIUM 80MG TAB (Status = Discontinued) TAKE ONE TABLET BY MOUTH EVERY EVENING FOR CHOLESTEROL. REPORT ANY UNEXPLAINED MUSCLE PAIN/WEAKNESS TO PROVIDER. Rx# [id number] Last Released: 06/19/24 Qty/Days Supply: Rx Expiration Date: 08/16/24 Refills Remainin OUTPT ATORVASTATIN CALCIUM 80MG TAB (Status = Active) TAKE ONE TABLET BY MOUTH EVERY EVENING FOR CHOLESTEROL. REPORT ANY UNEXPLAINED MUSCLE PAIN/WEAKNESS TO PROVIDER. Rx# [id number] Last Released: 09/17/24 Qty/Days Supply: Rx Expiration Date: 09/16/25 Refills Remainin OUTPT CHOLECALCIF 50MCG (D3-2,000UNIT) TAB (Status = Discontinued) TAKE ONE TABLET BY MOUTH ONCE A DAY FOR VITAMIN D DEFICIENCY Rx# [id number] Last Released: 01/06/24 Qty/Days Supply: 100 Rx Expiration Date: 01/04/25 Refills Remainin Indication: FOR VITAMIN D DEFICIENCY OUTPT CLOPIDOGREL BISULFATE 75MG TAB (Status = Discontinued) TAKE ONE TABLET BY MOUTH ONCE A DAY FOR ACUTE CORONARY SYNDROME Rx# [id number] Last Released: 09/16/24 Qty/Days Supply: Rx Expiration Date: 12/04/24 Refills Remainin Indication: FOR ACUTE CORONARY SYNDROME OUTPT CLOPIDOGREL BISULFATE 75MG TAB (Status = Active/Suspended) TAKE ONE TABLET BY MOUTH ONCE A DAY FOR ACUTE CORONARY SYNDROME Rx# [id number] Last Released: Qt Supply: Rx Expiration Date: 09/16/25 Refills Remainin Indication: FOR ACUTE CORONARY SYNDROME OUTPT LOSARTAN 50MG TAB (Status = Discontinued) TAKE ONE-HALF TABLET BY MOUTH ONCE A DAY FOR HIGH BLOOD PRESSURE Rx# [id number] Last Released: 01/09/24 Qty/Days Supply: 45 Rx Expiration Date: 01/04/25 Refills Remainin Indication: FOR HIGH BLOOD PRESSURE OUTPT OMEPRAZOLE 40MG EC CAP (Status = Discontinued) TAKE ONE CAPSULE BY MOUTH EVERY MORNING BEFORE A MEAL FOR GASTROESOPHAGEAL REFLUX DISEASE TAKE 30 MINUTES PRIOR TO FOOD. Rx# [id number] Last Released: 09/16/24 Qty/Days Supply: Rx Expiration Date: 01/04/25 Refills Remainin Indication: FOR GASTROESOPHAGEAL REFLUX DISEASE OUTPT OMEPRAZOLE 40MG EC CAP (Status = Active/Suspended) TAKE ONE CAPSULE BY MOUTH EVERY MORNING BEFORE A MEAL FOR GASTROESOPHAGEAL REFLUX DISEASE TAKE 30 MINUTES PRIOR TO FOOD. Rx# [id number] Last Released: Qt/Days Supply: Rx Expiration Date: 09/16/25 Refills Remainin Indication: FOR GASTROESOPHAGEAL REFLUX DISEASE OUTPT PROPRANOLOL HCL 60MG SA CAP (Status = Active) TAKE ONE CAPSULE BY MOUTH ONCE A DAY FOR HIGH BLOOD PRESSURE Rx# [id number] Last Released: 09/16/24 Qty/Days Supply: Rx Expiration Date: 09/14/25 Refills Remainin Indication: FOR HIGH BLOOD PRESSURE SUPPLIES PHARMACY TERMS AND POSSIBLE PATIENT ACTIONS INPT = [place] inpatient order IV = [place] intravenous medication OUTPT = [place] outpatient prescription PHARMACY POSSIBLE PATIENT TERMS EXPLANATION ACTIONS -------- ---- ACTIVE A prescription that can be If you have refills, filled at the local [place] pharmacy. you may request a refill of this prescription from your [place] pharmacy. CLINIC A medication you received during If you have questions a visit to a [place] clinic or about this medication emergency department. contact your [place] healthcare team. DISCONTINUED A prescription your provider has Contact your VA stopped. It is no longer healthcare team if you available to be sent to you or need more of this picked up at the [place] pharmacy medication. window. A prescription which is too old Contact your VA to fill. This does not refer to healthcare team if you the expiration date of the need more of this medication in the container. medication. NON-VA A medication that came from If this medication someplace other than a VA information is pharmacy. This may be a incorrect or out of prescription from either the VA date, please tell your or non VA providers that was VA healthcare team. filled outside the VA. Or, it may be an kbdg-mhm-rzitsze (OTC), herbal, dietary supplements or sample medication. ON HOLD An active prescription that will Contact your VA not be filled until pharmacy pharmacy when you need resolves the issue. more of this medication. PARKED An active prescription that will Contact your VA not be filled until the patient pharmacy when you need requests it. this medication. PENDING This prescription order has been If you have been sent to the pharmacy for review instructed to start and is not ready yet. this medication now, contact your VA pharmacy. SUSPENDED An active prescription that is Contact your VA not scheduled to be filled yet. pharmacy if you need You should receive it before this medication now. you run out. Medication list reviewed with Patient Patient/Caregiver reports taking medications as ordered. IS PATIENT TAKING ANY OVER THE COUNTER MEDICATIONS, SUCH VITAMINS OR HERBAL SUPPLEMENTS, INCLUDING ANY MEDICATIONS PRESCRIBED BY ANOTHER PHYSICIAN? No Does patient have any new allergies to report since last visit? NO VITALS: TEMPERATURE: 97.6 F [36.4 C] (09/13/2024 09:45) BP: 135/88 (10/14/2024 09:07) RESP: 16 (10/14/2024 09:07) PULSE: 61 (10/14/2024 09:07) HT: 72.0 in [182.9 cm] (10/14/2024 09:07) WT: 211.8 lb [96.07 kg] (10/14/2024 09:07) BMI: 28.8 PAIN ASSESSMENT: (Most Recent Pain Score in Vitals Package: 2 (12/08/2022 08:35) ) The patient indicated that they and their close contacts have not traveled outside of the [place] in the past 21 days. The patient reports the following symptoms: No symptoms present The patient is not immunocompromised. The patient does not report having a history of Multi Drug Resistant Organism (MDRO) within the last five years. The patient does not report having been exposed to measles, chickenpox, or zoster in last 30 days. This patient's last pain assessment score was: 2 (12/08/2022 08:35). A detailed pain assessment showed the following: Pain characteristics (per patient's own words) Aching, Soreness Location of current pain Foot and HIP STRESS: Thank you for your service. Now let us serve you. At the [facility], we strive to provide you with exceptional health care that improves your health and well-being. Are you feeling sad, empty, or depressed? No Do you need to talk about things in your life that worry you or cause you stress? No Do you need to talk about personal problems, family problems, alcohol use, drug use, or mental or emotional illness? No SUICIDE SCREENING: The patient was asked, Over the past two weeks, how often have you been bothered by thoughts that you would be better off or of hurting yourself in some way? Not At All SPIRITUAL ASSESSMENT: Are there episcopalian practices or spiritual concerns you want the textile designer, your physician, and other health care team members to immediately know about? No Patient advised to call the clinic for any concerns, questions, or symptoms. Patient and/or caregiver verbalized understanding of plan of care. [facility] DIGITAL DIVIDE CAPABILITY REMINDER: Patient is not interested in [facility] at this time. 'S RIGHT TO DECLINE STATEMENT [place] understands they have the right to decline the use of [employer] at any time without adverse affects on their continued access to healthcare. /natalia/ LYNETTE CARRANZA LPN Signed: 10/14/2024 09:14 LYNETTE CARRANZA [facility]
--- OUTSIDE RECORDS SUMMARY | 2024-10-14 04:00 | XMS_ITS ---
Author Name [facility] [facility] [place] Address [address] [place] [address] Care Team Providers Care Facility Assistant Name Role Phone LAWANDA ROBISON Primary Care [...] Name Patient's Relationship to Policy Tapia [facility] Nov 05, 2015 [id number] [phone] Jerry MARIN PATIENT [employer] PRESCRIPT ION HMO Nov 05, 2015 [facility] [id number] [phone] Jerry MARIN PATIENT [facility] PREFERRED PROVIDER ORGANIZAT ION (PPO) NATHAN ALBERTS , Mar 06, 2015 [id number] [phone] [facility] S Nov 05, 2015 [id number] [phone] Jerry MARIN PATIENT [facility] VES S Nov 05, 2015 [id number] TANIA,W ILLIAM PATIENT Selected Encounter This section includes the information on record at [place] for the Encounter. Date/Time Encounter Type Encounter Description Reason Pro vider Source Oct 14, 2024 09:00 AM Outpatient Encounter PRIMARY CARE/MEDICINE IHE Encounter Template Text not used by [place] Plan of Treatment: Future Appointments (+ 6 months) and Future Tests (+/- 45 days) The Plan of Treatment section includes future care activities for the patient from all [place] treatmentfacilities. This section includes future appointments and future orders which are active, pending or scheduled. Future Appointments This section includes appointments that were scheduled to occur 6 months from the date of the Encounter, up to a maximum of 20 appointments. The data comes from all [place] treatment facilities. Appointment Date/Time Appointment Type Appointme nt Facility Name Dec 12, 2024 10:45 AM [facility] Dec 31, 2024 08:30 AM AMBULATORY - MEDICINE [facility] Active, Pending, and Scheduled Orders This section includes a listing of several types of active, pending, and scheduled orders, including clinic medications orders, diagnostic test orders, procedure orders and consult orders; where the start date of the order is 45 days before the date of the Encounter or 45 days after the date of theEncounter. The data comes from all [place] treatment facilities. Test Date/Time Test Type Test Details Facility Name Oct 14, 2024 09:32 AM Consult Order [facility] ACUPUNCTURE [id number] Cons Customer Care Specialist's [facility] CB Oct 15, 2024 05:58 PM Consult Order PROSTHETIC S REQUEST - FLOW SHOES AND INSERTS [id number] Cons Customer Care Specialist's [facility] Advance Directives: All historical and current Section Date Range: From patient's date of to the date document was created. This section includes ALL of a patient's completed or amended [place] Advance and Rescinded Directives. The entries below indicate that a directive exists for the patient, but an actual copy is not included with this document. The data comes from all [place] facilities. Date Advance Directives Provider Source Mar 28, 2012 ADVANCE DIRECTIVE DISCUSSION [facility] Radiology Reports: +/- 30 days of the [...] the Encounter. The data comes from all [place] treatment facilities. Date/Time Radiology Report Provider Source Sep 19, 2024 08:36 AM LDCT LUNG CANCER S CREENING: COURTNEY MARIN [id number] -[id number] M Exm Date: SEP 19, 2024@08:36 Req Phys: LAWANDA ROBISON Loc: PB-[facility] PACT [facility] [facility] WH (Req Img Loc: PB-CT IMAGING Service: Unknown NYDIA SMITHSCBRINDA [facility] [place] [address] (Case [id number] COMPLETE) LDCT LUNG CANCER SCREENING (CT Detailed) CPT:17372 Reason for Study: screening Clinical History: Responsible Attending: Junito Attending Contact Number: [id number] Resident Contact Number: Report Status: Verified Date Reported: SEP 19, 2024 Date Verified: SEP 19, 2024 Career Consultant E-Sig:/ES/JUANY PABON Report: EXAM: LDCT LUNG CANCER SCREENING ADDITIONAL HISTORY: N/A COMPARISON: None PROTOCOL: Screening protocol, low dose, non-contrast CT chest was performed at the local [place] facility in accordance with Lung-Rads 2022. Additional [...] N/A. Primary Interpreting Staff: JUANY PABON, RADIOLOGIST (Career Consultant) /JUANY De Souza [facility] Encounter Notes: All associated encounter notes This section contains the clinical notes associated to the Encounter. Date/Time Encounter Note(s) Provider Source Oct 14, 2024 11:59 PM GENERAL MEDICINE N OTE: LOCAL TITLE: General Note PB STANDARD TITLE: GENERAL MEDICINE NOTE DATE OF NOTE: OCT 14, 2024@23:59 ENTRY DATE: OCT 14, 2024@23:59:44 AUTHOR: LAWANDA ROBISON EXP COSIGNER: URGENCY: STATUS: COMPLETED Please enter prosthetics for size 10 insoles for plantar fasciitis. /natalia/ GAIL Yoon-ALEXANDER Hunter Signed: 10/15/2024 00:00 Receipt Acknowledged By: 10/15/2024 09:07 /natalia/ Jamia Bui RN [place] [facility], [facility] LAWANDA ROBISON
[2024-10-20 13:21] VITALS: BP 151/96; PULSE 87; RESP 16; O2SAT 96
--- OUTSIDE RECORDS SUMMARY | 2024-10-20 13:22 | XMS_ITS | Continuity of Care Document ---
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 It does not include entries that were removed or entered in error. Problem Status Onset Date Problem Type Date of Resolution Comments Source CAD - Coronary Artery Disease (SCT [id number]) Active 03/06/19 18 Condition Apr 03, 2017 Entered By: KATIE ABDALLA Comment: ID 2017 Entered By: KATIE ABDALLA Comment: 2 stents 03/2017 [facility] visit for: exam following treatment Inactive Condition DoD PTERYGIUM Active Condition DoD Serum Total Cholesterol Was Elevated Active Condition DoD ESSENTIAL HYPERTENSION Active Condition DoD OBESITY Active Condition 30 lb DoD SLEEP APNEA OBSTRUCTIVE Active Condition advised to reduce caffeine. DoD ESOPHAGITIS CHRONIC REFLUX Active Condition DoD NICOTINE DEPENDENCE Active Condition Pt express desire to stop. DoD difficulty breathing (dyspnea) Active Condition DoD Unilateral repair of inguinal hernia Active Condition about 1988. DoD EXTRUDED INTERVERTEBRAL DISC LUMBAR Active Condition IDET procedure, chronic low back pain. DoD HYPERLIPIDEMIA Active Condition DoD visit for: services physical Inactive Condition MEB for Sl eep Apnea DoD abdominal pain Inactive Condition post hemataems is DoD Actinic keratosis Active Condition Ju l 2016 Entered By: JOHAN GALLAGHER Comment: Conversion of active ICD9->ICD10 09/23/2016 [facility] Actinic Keratosis (ICD-9-CM 702.0) Active Condition [facility] Acute COVID-19 Active Condition [facility] Administrative reason for encounter Active Condition Sep 23, 2016 Entered By: JOHAN GALLAGHER Comment: Administrative reason for encounter on 09/23/2016 [facility] Alcohol abuse Active Condition [facility] Alcohol abuse Active Condition Sep Entered By: JOHAN GALLAGHER Comment: Conversion of active ICD9->ICD10 09/23/2016 [facility] Alcohol Abuse Active Condition [facility] Anxiety Active Condition [facility] Benign essential hypertension Active Condition Sep 23, 2016 Entered By: JOHAN GALLAGHER Comment: Conversion of active ICD9->ICD10 09/23/2016 [facility] Bilateral plantar fasciitis Active Condition [facility] CAD - Coronary Artery Disease (SCT [id number]) Active Condition [place] [facility] Chronic low back pain Active Condition Jan 21, 2016 Entered By: KATIE ABDALLA Comment: Bulging discs L4-S1Jan 21, 2016 Entered By: KATIE ABDALLA Comment: Facet Hypertrophy L3-L4 [facility] Chronic low back pain Active Condition Sep 23, 2016 Entered By: JOHAN GALLAGHER Comment: Conversion of active ICD9->ICD10 09/23/2016 [facility] Chronic Low Back Pain (ICD-9-CM 724.2) Active Condition [facility] Chronic obstructive lung disease Active Condition [facility] Depressive disorder Active Condition [facility] Diseases due to Viruses and Chlamydiae, other Specified Viral Warts (ICD-9-CM 07 Active Condition [facility] Diverticulitis of sigmoid colon Active Condition Aug 12, 2022 Entered By: NAYA ALEJANDRA Comment: July 2022. [place] [facility] Gastroesophageal reflux disease Active Condition [facility] Gastroesophageal reflux disease Active Condition Sep 23, 2016 Entered By: JOHAN GALLAGHER Comment: Conversion of active ICD9->ICD10 09/23/2016 [facility] GERD - Gastro-Esophageal Reflux Disease (SCT [id number]) [facility] GERD * (ICD-9-CM 530.81) Active Condition [facility] History of angioplasty Active Condition Dec 27, 2017 Entered By: NAYA ALEJANDRA Comment: with Stent placement. [place] [facility] History of myocardial infarction Active Condition [place] [facility] HTN - Hypertension (SCT [id number]) Active Condition [place] [facility] Hyperlipidemia (SCT [id number]) Active Condition [place] [facility] Hypertension Active Condition [facility] Hypertension Active Condition [facility] Migraine Active Condition Sep 23 Entered By: JOHAN GALLAGHER Comment: Conversion of active ICD9->ICD10 09/23/2016 [facility] Migraines (ICD-9-CM 346.90) Active Condition [facility] Mixed hyperlipidemia Active Condition [facility] Multiple nodules of lung Active Condition Aug 08, 2022 Entered By: NAYA ALEJANDRA Comment: #2, 3mm rodney. nodules as incidental CT finding 08/2022.Feb 06, 2023 Entered By: NAYA ALEJANDRA Comment: No change on CT 02/2023. [place] [facility] Other Seborrheic Keratosis (ICD-9-CM 702.19) Active Condition [facility] Polyp Colon (SCT [id number]) Active Condition Sep 12, 2022 Entered By: MICHAELA GUIDO Comment: x2 colonoscopy 2004 [place] [facility] Posttraumatic stress disorder Active Condition [facility] Prediabetes Active Condition [place] [facility] Sleep apnea Active Condition [facility] Sleep apnea Active Condition Sep 23, 2016 Entered By: JOHAN GALLAGHER Comment: Conversion of active ICD9->ICD10 09/23/2016 [facility] Sleep Apnea Active Condition [facility] Sleep Apnea (SCT 48615214) Active Condition [place] [facility] Tobacco user Active Condition [facility] Unspecified internal derangement of knee (ICD-9-CM 717.9) Active Condition [facility] Diagnosis: ICD-10-CM F32.A Depression, unspecified Active Diagnosis [facility] Diagnosis: ICD-10-CM F43.11 Post-traumatic stress disorder, acute Active Diagnosis [facility] Diagnosis: ICD-10-CM F41.1 Generalized anxiety disorder Active Diagnosis [facility] [place] [facility] Diagnosis: ICD-10-CM I10 Essential (primary) hypertension Active Diagnosis [facility] [place] [facility] Diagnosis: ICD-10-CM F41.9 Anxiety disorder, unspecified Active Diagnosis [place] [place] [facility] Diagnosis: ICD-10-CM Z00.00 Encntr for general adult medical exam w/o abnormal findings Active Diagnosis [facility] [place] [facility] Diagnosis: ICD-10-CM Z12.2 Encntr screen for malignant neoplasm of respiratory organs Active Diagnosis [place] [facility] Diagnosis: ICD-10-CM Z71.9 Counseling, unspecified Active Diagnosis [facility] [place] [facility] Medications Combined list of outpatient medications from Department of Defense and Veterans Affairs facilities.Medications provided include 1) outpatient medications from the last 15 months, and 2) patient-reported medications. Medication Details Route Status Patient Instructions Prescription Expires Prescription Number Last Dispense Date Ordering Provider Order Date Order Qty Source ALBUTEROL SO4 90MCG/ACTUA T (CFC-F) INHL,ORAL,8 .5GM INHALE 2 PUFFS BY ORAL INHALATI ON FOUR TIMES A DAY FOR ASTHMA SHAKE WELL. RINSE MOUTHPIE CE FREQUENT LY TO PREVENT CLOGGING . RESPIR ATORY (INHAL ATION) ACTIVE 01/04/2025 [id number] 4 Krystyna ROBISON R 2023 3 [facility] atorvastati n (U/D) 80 MG ORAL TAB TAKE ONE TABLET BY MOUTH EVERY EVENING FOR CHOLESTE ROL. REPORT ANY UNEXPLAI ARYA MUSCLE PAIN/WEA KNESS TO PROVIDER . 08/16/2024 [id number] 4 AISSATOU ROONEY [address] [place] [address] Div[facility] ATORVASTATI N CA 80MG TAB TAKE ONE TABLET BY MOUTH EVERY EVENING FOR CHOLESTE ROL. REPORT ANY UNEXPLAI ARYA MUSCLE PAIN/WEA KNESS TO PROVIDER . ORAL ACTIVE 09/16/2025 [id number] 5 Krystyna ROBISON R [address] [place] [address] [facility] ATORVASTATI N CA 80MG TAB TAKE ONE TABLET BY MOUTH EVERY EVENING FOR CHOLESTE ROL. REPORT ANY UNEXPLAI ARYA MUSCLE PAIN/WEA KNESS TO PROVIDER . ORAL DISCONT INUED 08/16/2024 [id number] 5 NAYA ALEJANDRA [address] [place] [address] [facility] CHOLECALCIF LANCE 50MCG (2,000UNIT) TAB TAKE ONE TABLET BY MOUTH ONCE A DAY FOR VITAMIN D DEFICIEN CY ORAL DISCONT INUED BY PROVIDE R 01/04/2025 [id number] 4 Krystyna ROBISON R 2023 100 [facility] CLOPIDOGREL BISULFATE 75MG TAB TAKE ONE TABLET BY MOUTH ONCE A DAY FOR ACUTE CORONARY SYNDROME ORAL SUSPEND ED 09/16/2025 [id number] 5 Krystyna ROBISON R [address] [place] [address] [facility] CLOPIDOGREL BISULFATE 75MG TAB TAKE ONE TABLET BY MOUTH ONCE A DAY FOR ACUTE CORONARY SYNDROME ORAL DISCONT INUED 12/04/2024 [id number] 5 Krystyna ROBISON R [address] [place] [address] [facility] FLUTICASONE 250MCG/SALM ETEROL 50MCG INHL,ORAL,D ISKUS,60 INHALE 1 DISK BY ORAL INHALATI ON ONCE A DAY RESPIR ATORY (INHAL ATION) ACTIVE KATIE ABDALLA 2017 [facility] 50MG TAB TAKE ONE-HALF TABLET BY MOUTH ONCE A DAY FOR HIGH BLOOD PRESSURE ORAL DISCONT INUED BY PROVIDE R 01/04/2025 [id number] 4 Krystyna ROBISON R [address] [place] [address] [facility] OMEPRAZOLE 40MG CAP,EC TAKE ONE CAPSULE BY MOUTH EVERY MORNING BEFORE A MEAL FOR GASTROES OPHAGEAL REFLUX DISEASE TAKE 30 MINUTES PRIOR TO FOOD. ORAL SUSPEND ED 09/16/2025 [id number] 5 Krystyna ROBISON R [address] [place] [address] [facility] OMEPRAZOLE 40MG CAP,EC TAKE ONE CAPSULE BY MOUTH EVERY MORNING BEFORE A MEAL FOR GASTROES OPHAGEAL REFLUX DISEASE TAKE 30 MINUTES PRIOR TO FOOD. ORAL DISCONT INUED 01/04/2025 [id number] 5 Krystyna ROBISON R [address] [place] [address] [facility] OMEPRAZOLE 40MG CAP,EC TAKE ONE CAPSULE BY MOUTH EVERY MORNING BEFORE A MEAL TO LOWER STOMACH ACID. TAKE 30 MINUTES PRIOR TO FOOD. ORAL 10/13/2023 [id number] 4 NAYA ALEJANDRA [address] [place] [address] [facility] PROPRANOLOL HCL 60MG CAP,SA TAKE ONE CAPSULE BY MOUTH ONCE A DAY FOR HIGH BLOOD PRESSURE ORAL ACTIVE 09/14/2025 [id number] 5 Krystyna ROBISON R [address] [place] [address] [facility] SERTRALINE HCL 50MG TAB TAKE ONE-HALF TABLET BY MOUTH EVERY MORNING FOR POST TRAUMATI C STRESS DISORDER ORAL ACTIVE 10/15/2025 [id number] 5 Krystyna ROBISON [address] [facility] Allergies, Adverse Reactions, Alerts Combined list of allergies from [facility] and [facility] facilities. It does not include entries that were removed or entered in error. Substance Category Reaction Severity Reaction type Status Date Reported Comments Source ATORVASTATIN Propensity to adverse reactions to drug (finding) active 8 [facility] 15 Atorvastatin Calcium Drug allergy (disorder) active 8 [facility] 15 Immunizations Combined list of available immunizations from the [facility] and [facility] facilities. Immunization Series Date Given Administered By Site Reaction Lot Number CVX Code Drug Director Vaccine Status Comments Source ZOSTER RECOMBINANT 2 2021 187 complet [facility] ZOSTER RECOMBINANT 1 2021 187 complet [facility] TDAP 2018 115 complet [facility] FLU VACCINE NO PRESERV 3 & > (HISTORICAL) 2010 complet [facility] INFLUENZA, UNSPECIFIED FORMULATION 2010 88 complet [facility] INFLUENZA, UNSPECIFIED FORMULATION 2006 NONE 88 complet [facility] TD(ADULT) UNSPECIFIED FORMULATION 2003 139 [facility] Results Combined list of recent chemistry, hematology and other laboratory results from [facility] and [facility], ranging from 15 months to all on record, depending upon the facility. Order Name Results Value Reference Range Date Interpretation Specimen Comments Source PROST. SPECIFIC AG.(PB-STL ) PROSTATE SPECIFIC AG [MASS/VOLUM E] IN SERUM OR PLASMA 1.11 ng/mL 0 - 4 01/03 Specimen Type: SERUM No comment entered. Ordering Provider: Krystyna ROBISON Report Released Date/Time : Jan 04, 2024 09:05 AM Reporting Lab: [place] [facility] [address] [place] [address] Performin g Lab: [place] [facility] [address] [place] [address] [facility] TSH (MA-PB) THYROTROPIN [UNITS/VOLU ME] IN SERUM OR PLASMA 1.231 u[IU]/mL 0.47 - 5 01/03 Specimen Type: SERUM No comment entered. Ordering Provider: Krystyna ROBISON Report Released Date/Time : Jan 04, 2024 09:05 AM Reporting Lab: [place] [facility] [address] [place] [address] Performin g Lab: [place] [facility] [address] [place] [address] [facility] URINALYSIS (STL-PB) COLOR OF URINE Colorless 01/03 Specimen Type: URINE No comment entered. Ordering Provider: Krystyna ROBISON Report Released Date/Time : Jan 04, 2024 09:05 AM Reporting Lab: [place] [facility] [address] [place] [address] Performin g Lab: [place] [facility] [address] [place] [address] [facility] URINALYSIS (STL-PB) BILIRUBIN.T OTAL [PRESENCE] IN URINE BY TEST STRIP NEGATIVEm g/dL 01/03 Specimen Type: URINE No comment entered. Ordering Provider: Krystyna ROBISON Report Released Date/Time : Jan 04, 2024 09:05 AM Reporting Lab: [place] [facility] [address] [place] [address] Performin g Lab: [place] [facility] [address] [place] [address] [facility] URINALYSIS (STL-PB) PH OF URINE BY TEST STRIP 7.0 5.0 - 8.0 01/03 Specimen Type: URINE No comment entered. Ordering Provider: Krystyna ROBISON Report Released Date/Time : Jan 04, 2024 09:05 AM Reporting Lab: [place] [facility] [address] [place] [address] Performin g Lab: [place] [facility] [address] [place] [address] [facility] URINALYSIS (STL-PB) APPEARANCE OF URINE CLEAR 01/03 Specimen Type: URINE No comment entered. Ordering Provider: Krystyna ROBISON R Report Released Date/Time : Jan 04, 2024 09:05 AM Reporting Lab: [place] [facility] [address] [place] [address] Performin g Lab: [place] [facility] [address] [place] [address] [facility] URINALYSIS (STL-PB) NITRITE [PRESENCE] IN URINE BY TEST STRIP NEGATIVEm g/dL 01/03 Specimen Type: URINE No comment entered. Ordering Provider: Krystyna ROBISON Report Released Date/Time : Jan 04, 2024 09:05 AM Reporting Lab: [place] [facility] [address] [place] [address] Performin g Lab: [place] [facility] [address] [place] [address] [facility] URINALYSIS (STL-PB) GLUCOSE [MASS/VOLUM E] IN URINE BY TEST STRIP NORMALmg/ dL 01/03 Specimen Type: URINE No comment entered. Ordering Provider: Krystyna ROBISON Report Released Date/Time : Jan 04, 2024 09:05 AM Reporting Lab: [place] [facility] [address] [place] [address] Performin g Lab: [place] [facility] [address] [place] [address] [facility] URINALYSIS (STL-PB) PROTEIN [MASS/VOLUM E] IN URINE BY TEST STRIP NEGATIVEm g/dL 01/03 Specimen Type: URINE No comment entered. Ordering Provider: Krystyna ROBISON Report Released Date/Time : Jan 04, 2024 09:05 AM Reporting Lab: [place] [facility] [address] [place] [address] Performin g Lab: [place] [facility] [address] [place] [address] [facility] URINALYSIS (STL-PB) URN.UROBILI NOGEN NORMALmg/ dL 01/03 Specimen Type: URINE No comment entered. Ordering Provider: Krystyna ROBISON Report Released Date/Time : Jan 04, 2024 09:05 AM Reporting Lab: [place] [facility] [address] [place] [address] Performin g Lab: [place] [facility] [address] [place] [address] [facility] URINALYSIS (STL-PB) HEMOGLOBIN [MASS/VOLUM E] IN URINE BY TEST STRIP NEGATIVEm g/dL 01/03 Specimen Type: URINE No comment entered. Ordering Provider: Krystyna ROBISON Report Released Date/Time : Jan 04, 2024 09:05 AM Reporting Lab: [place] [facility] [address] [place] [address] Performin g Lab: [place] [facility] [address] [place] [address] [facility] URINALYSIS (STL-PB) KETONES [MASS/VOLUM E] IN URINE BY TEST STRIP NEGATIVEm g/dL 01/03 Specimen Type: URINE No comment entered. Ordering Provider: Krystyna ROBISON Report Released Date/Time : Jan 04, 2024 09:05 AM Reporting Lab: [place] [facility] [address] [place] [address] Performin g Lab: [place] [facility] [address] [place] [address] [facility] URINALYSIS (STL-PB) URN.LEUK.ES T. NEGATIVE 01/03 Specimen Type: URINE No comment entered. Ordering Provider: Krystyna ROBISON Report Released Date/Time : Jan 04, 2024 09:05 AM Reporting Lab: [place] [facility] [address] [place] [address] Performin g Lab: [place] [facility] [address] [place] [address] [facility] URINALYSIS (STL-PB) SPECIFIC GRAVITY OF URINE 1.009 1.005 - 1.029 01/03 Specimen Type: URINE No comment entered. Ordering Provider: Krystyna ROBISON Report Released Date/Time : Jan 04, 2024 09:05 AM Reporting Lab: [place] [facility] [address] [place] [address] Performin g Lab: [place] [facility] [address] [place] [address] [facility] HGA1C HEMOGLOBIN A1C/HEMOGLO BIN.TOTAL IN BLOOD 6.0 4.0 - 6.0 01/03 Specimen Type: BLOOD No comment entered. Ordering Provider: Krystyna ROBISON R Report Released Date/Time : Jan 04, 2024 09:05 AM Reporting Lab: [place] [facility] [address] [place] [address] Performin g Lab: [place] [facility] [address] [place] [address] [facility] VITAMIN D, 25-HYDROXY 25-HYDROXYV ITAMIN D3 [MASS/VOLUM E] IN SERUM OR PLASMA 31.8 ng/mL 30 - 96 01/03 Specimen Type: SERUM No comment entered. Ordering Provider: Krystyna ROBISON Report Released Date/Time : Jan 04, 2024 09:05 AM Reporting Lab: [place] [facility] [address] [place] [address] Performin g Lab: [place] [facility] [address] [place] [address] [facility] CHOLESTERO L PANEL (PB) CHOLESTEROL [MASS/VOLUM E] IN SERUM OR PLASMA 178 mg/dL 0 - 200 01/03 Specimen Type: PLASMA No comment entered. Ordering Provider: Krystyna ROBISON Report Released Date/Time : Jan 04, 2024 09:05 AM Reporting Lab: [place] [facility] [address] [place] [address] Performin g Lab: [place] [facility] [address] [place] [address] [facility] CHOLESTERO L PANEL (PB) TRIGLYCERID E [MASS/VOLUM E] IN SERUM OR PLASMA 195 mg/dL 0 - 150 01/03 H Specimen Type: PLASMA No comment entered. Ordering Provider: Krystyna ROBISON Report Released Date/Time : Jan 04, 2024 09:05 AM Reporting Lab: [place] [facility] [address] [place] [address] Performin g Lab: [place] [facility] [address] [place] [address] [facility] CHOLESTERO L PANEL (PB) CHOLESTEROL IN LDL [MASS/VOLUM E] IN SERUM OR PLASMA BY CALCULATION 94.0 mg/dL 01/03 Specimen Type: PLASMA No comment entered. Ordering Provider: Krystyna ROBISON Report Released Date/Time : Jan 04, 2024 09:05 AM Reporting Lab: [place] [facility] [address] [place] [address] Performin g Lab: [place] [facility] [address] [place] [address] [facility] CHOLESTERO L PANEL (PB) CHOLESTEROL IN HDL [MASS/VOLUM E] IN SERUM OR PLASMA 45.0 mg/dL 40 01/03 H Specimen Type: PLASMA No comment entered. Ordering Provider: Krystyna ROBISON Report Released Date/Time : Jan 04, 2024 09:05 AM Reporting Lab: [place] [facility] [address] [place] [address] Performin g Lab: [place] [facility] [address] [place] [address] [facility] CHOLESTERO L PANEL (PB) CHOLESTEROL IN HDL/CHOLEST LANCE.TOTAL [MASS RATIO] IN SERUM OR PLASMA 25.3 25 01/03 Specimen Type: PLASMA No comment entered. Ordering Provider: Krystyna ROBISON Report Released Date/Time : Jan 04, 2024 09:05 AM Reporting Lab: [place] [facility] [address] [place] [address] Performin g Lab: [place] [facility] [address] [place] [address] [facility] CBC LEUKOCYTES [#/VOLUME] IN BLOOD BY AUTOMATED COUNT 7.7 10*3/uL 3.6 - 11.2 01/03 Specimen Type: BLOOD No comment entered. Ordering Provider: Krystyna ROBISON R Report Released Date/Time : Jan 04, 2024 09:05 AM Reporting Lab: [place] [facility] [address] [place] [address] Performin g Lab: [place] [facility] [address] [place] [address] [facility] CBC ERYTHROCYTE S [#/VOLUME] IN BLOOD BY AUTOMATED COUNT 4.90 10*6/uL 4.10 - 5.70 01/03 Specimen Type: BLOOD No comment entered. Ordering Provider: Krystyna ROBISON Report Released Date/Time : Jan 04, 2024 09:05 AM Reporting Lab: [place] [facility] [address] [place] [address] Performin g Lab: [place] [facility] [address] [place] [address] [facility] CBC HEMOGLOBIN [MASS/VOLUM E] IN BLOOD 15.2 g/dL 13.1 - 16.8 01/03 Specimen Type: BLOOD No comment entered. Ordering Provider: Krystyna ROBISON Report Released Date/Time : Jan 04, 2024 09:05 AM Reporting Lab: [place] [facility] [address] [place] [address] Performin g Lab: [place] [facility] [address] [place] [address] [facility] CBC HEMATOCRIT [VOLUME FRACTION] OF BLOOD 44.7 38.2 - 48.4 01/03 Specimen Type: BLOOD No comment entered. Ordering Provider: Krystyna ROBISON Report Released Date/Time : Jan 04, 2024 09:05 AM Reporting Lab: [place] [facility] [address] [place] [address] Performin g Lab: [place] [facility] [address] [place] [address] [facility] CBC MCV [ENTITIC VOLUME] BY AUTOMATED COUNT 91.2 fL 80.0 - 100.0 01/03 Specimen Type: BLOOD No comment entered. Ordering Provider: Krystyna ROBISON R Report Released Date/Time : Jan 04, 2024 09:05 AM Reporting Lab: [place] [facility] [address] [place] [address] Performin g Lab: [place] [facility] [address] [place] [address] [facility] CBC MCH [ENTITIC MASS] BY AUTOMATED COUNT 31.0 pg 27.0 - 34.0 01/03 Specimen Type: BLOOD No comment entered. Ordering Provider: Krystyna ROBISON R Report Released Date/Time : Jan 04, 2024 09:05 AM Reporting Lab: [place] [facility] [address] [place] [address] 8 Performin g Lab: [place] [facility] [address] [place] [address] 8 [facility] CBC MCHC [MASS/VOLUM E] BY AUTOMATED COUNT 34.0 g/dL 33.0 - 36.0 01/03 Specimen Type: BLOOD No comment entered. Ordering Provider: Krystyna ROBISON R Report Released Date/Time : Jan 04, 2024 09:05 AM Reporting Lab: [place] [facility] [address] [place] [address] 8 Performin g Lab: [place] [facility] [address] [place] [address] [facility] CBC PLATELETS [#/VOLUME] IN BLOOD BY AUTOMATED COUNT 233 10*3/uL 150 - 400 01/03 Specimen Type: BLOOD No comment entered. Ordering Provider: Krystyna ROBISON R Report Released Date/Time : Jan 04, 2024 09:05 AM Reporting Lab: [place] [facility] [address] [place] [address] 8 Performin g Lab: [place] [facility] [address] [place] [address] 8 [facility] CBC PLATELET MEAN VOLUME [ENTITIC VOLUME] IN BLOOD BY AUTOMATED COUNT 10.0 fL 7.5 - 11.2 01/03 Specimen Type: BLOOD No comment entered. Ordering Provider: Krystyna ROBISON R Report Released Date/Time : Jan 04, 2024 09:05 AM Reporting Lab: [place] [facility] [address] [place] [address] 8 Performin g Lab: [place] [facility] [address] [place] [address] 8 [facility] CBC ERYTHROCYTE DISTRIBUTIO N WIDTH [RATIO] BY AUTOMATED COUNT 12.8 11.8 - 15.1 01/03 Specimen Type: BLOOD No comment entered. Ordering Provider: Krystyna ROBISON R Report Released Date/Time : Jan 04, 2024 09:05 AM Reporting Lab: [place] [facility] [address] [place] [address] 8 Performin g Lab: [place] [facility] [address] [place] [address] [facility] CBC LYMPHOCYTES /100 LEUKOCYTES IN BLOOD BY AUTOMATED COUNT 30.7 01/03 Specimen Type: BLOOD No comment entered. Ordering Provider: Krystyna ROBISON Report Released Date/Time : Jan 04, 2024 09:05 AM Reporting Lab: [place] [facility] [address] [place] [address] 8 Performin g Lab: [place] [facility] [address] [place] [address] 8 [facility] CBC MONOCYTES/1 00 LEUKOCYTES IN BLOOD BY AUTOMATED COUNT 5.6 01/03 Specimen Type: BLOOD No comment entered. Ordering Provider: Krystyna ROBISON Report Released Date/Time : Jan 04, 2024 09:05 AM Reporting Lab: [place] [facility] [address] [place] [address] 8 Performin g Lab: [place] [facility] [address] [place] [address] 8 [facility] CBC NEUTROPHILS /100 LEUKOCYTES IN BLOOD BY AUTOMATED COUNT 59.8 01/03 Specimen Type: BLOOD No comment entered. Ordering Provider: Krystyna ROBISON R Report Released Date/Time : Jan 04, 2024 09:05 AM Reporting Lab: [place] [facility] [address] [place] [address] 8 Performin g Lab: [place] [facility] [address] [place] [address] 8 [facility] CBC EOSINOPHILS /100 LEUKOCYTES IN BLOOD BY AUTOMATED COUNT 2.9 01/03 Specimen Type: BLOOD No comment entered. Ordering Provider: Krystyna ROBISON R Report Released Date/Time : Jan 04, 2024 09:05 AM Reporting Lab: [place] [facility] [address] [place] [address] 8 Performin g Lab: [place] [facility] [address] [place] [address] 8 [facility] CBC BASOPHILS/1 00 LEUKOCYTES IN BLOOD BY AUTOMATED COUNT 0.7 01/03 Specimen Type: BLOOD No comment entered. Ordering Provider: Krystyna ROBISON Report Released Date/Time : Jan 04, 2024 09:05 AM Reporting Lab: [place] [facility] [address] [place] [address] 8 Performin g Lab: [place] [facility] [address] [place] [address] 8 [facility] CBC LYMPHOCYTES [#/VOLUME] IN BLOOD BY AUTOMATED COUNT 2.35 10*3/uL 0.77 - 4.50 01/03 Specimen Type: BLOOD No comment entered. Ordering Provider: Krystyna ROBISON R Report Released Date/Time : Jan 04, 2024 09:05 AM Reporting Lab: [place] [facility] [address] [place] [address] 8 Performin g Lab: [place] [facility] [address] [place] [address] 8 [facility] CBC MONOCYTES [#/VOLUME] IN BLOOD BY AUTOMATED COUNT 0.43 10*3/uL 0.19 - 0.8 01/03 Specimen Type: BLOOD No comment entered. Ordering Provider: Krystyna ROBISON R Report Released Date/Time : Jan 04, 2024 09:05 AM Reporting Lab: [place] [facility] [address] [place] [address] 8 Performin g Lab: [place] [facility] [address] [place] [address] 8 [facility] CBC NEUTROPHILS [#/VOLUME] IN BLOOD BY AUTOMATED COUNT 4.59 10*3/uL 2.10 - 8.00 01/03 Specimen Type: BLOOD No comment entered. Ordering Provider: Krystyna ROBISON R Report Released Date/Time : Jan 04, 2024 09:05 AM Reporting Lab: [place] [facility] [address] [place] [address] 8 Performin g Lab: [place] [facility] [address] [place] [address] 8 [facility] CBC EOSINOPHILS [#/VOLUME] IN BLOOD BY AUTOMATED COUNT 0.22 10*3/uL 0.00 - 0.60 01/03 Specimen Type: BLOOD No comment entered. Ordering Provider: Krystyna ROBISON R Report Released Date/Time : Jan 04, 2024 09:05 AM Reporting Lab: [place] [facility] [address] [place] [address] 8 Performin g Lab: [place] [facility] [address] [place] [address] 8 [facility] CBC BASOPHILS [#/VOLUME] IN BLOOD BY AUTOMATED COUNT 0.05 10*3/uL 0.00 - 0.20 01/03 Specimen Type: BLOOD No comment entered. Ordering Provider: Krystyna ROBISON R Report Released Date/Time : Jan 04, 2024 09:05 AM Reporting Lab: [place] [facility] [address] [place] [address] 8 Performin g Lab: [place] [facility] [address] [place] [address] 8 [facility] CBC IMMATURE GRANULOCYTE S/100 LEUKOCYTES IN BLOOD BY AUTOMATED COUNT 0.3 01/03 Specimen Type: BLOOD No comment entered. Ordering Provider: Krystyna ROBISON R Report Released Date/Time : Jan 04, 2024 09:05 AM Reporting Lab: [place] [facility] [address] [place] [address] 8 Performin g Lab: [place] [facility] [address] [place] [address] 8 [facility] CBC IMMATURE GRANULOCYTE S [#/VOLUME] IN BLOOD BY AUTOMATED COUNT 0.02 10*3/uL 0.00 - 0.05 01/03 Specimen Type: BLOOD No comment entered. Ordering Provider: Krystyna ROBISON R Report Released Date/Time : Jan 04, 2024 09:05 AM Reporting Lab: [place] [facility] [address] [place] [address] 8 Performin g Lab: [place] [facility] [address] [place] [address] 8 [facility] COMPREHENS STACY METABOLIC PANEL CREATININE [MASS/VOLUM E] IN SERUM OR PLASMA 0.96 mg/dL 0.7 - 1.3 01/03 Specimen Type: PLASMA No comment entered. Ordering Provider: Krystyna ROBISON R Report Released Date/Time : Jan 04, 2024 09:05 AM Reporting Lab: [place] [facility] [address] [place] [address] 8 Performin g Lab: [place] [facility] [address] [place] [address] 8 [facility] COMPREHENS STACY METABOLIC PANEL UREA NITROGEN [MASS/VOLUM E] IN SERUM OR PLASMA 13 mg/dL 9 - 25 01/03 Specimen Type: PLASMA No comment entered. Ordering Provider: Krystyna ROBISON R Report Released Date/Time : Jan 04, 2024 09:05 AM Reporting Lab: [place] [facility] [address] [place] [address] 8 Performin g Lab: [place] [facility] [address] [place] [address] 8 [facility] COMPREHENS STACY METABOLIC PANEL GLUCOSE [MASS/VOLUM E] IN SERUM OR PLASMA 95 mg/dL 72 - 99 01/03 Specimen Type: PLASMA No comment entered. Ordering Provider: Krystyna ROBISON R Report Released Date/Time : Jan 04, 2024 09:05 AM Reporting Lab: [place] [facility] [address] [place] [address] 8 Performin g Lab: [place] [facility] [address] [place] [address] 8 [facility] COMPREHENS STACY METABOLIC PANEL SODIUM [MOLES/VOLU ME] IN SERUM OR PLASMA 137 meq/L 136 - 145 01/03 Specimen Type: PLASMA No comment entered. Ordering Provider: Krystyna ROBISON R Report Released Date/Time : Jan 04, 2024 09:05 AM Reporting Lab: [place] [facility] [address] [place] [address] 8 Performin g Lab: [place] [facility] [address] [place] [address] 8 [facility] COMPREHENS STACY METABOLIC PANEL POTASSIUM [MOLES/VOLU ME] IN SERUM OR PLASMA 4.4 meq/L 3.5 - 5 01/03 Specimen Type: PLASMA No comment entered. Ordering Provider: Krystyna ROBISON R Report Released Date/Time : Jan 04, 2024 09:05 AM Reporting Lab: [place] [facility] [address] [place] [address] 8 Performin g Lab: [place] [facility] [address] [place] [address] 8 [facility] COMPREHENS STACY METABOLIC PANEL CHLORIDE [MOLES/VOLU ME] IN SERUM OR PLASMA 102 meq/L 98 - 107 01/03 Specimen Type: PLASMA No comment entered. Ordering Provider: Krystyna ROBISON R Report Released Date/Time : Jan 04, 2024 09:05 AM Reporting Lab: [place] [facility] [address] [place] [address] 8 Performin g Lab: [place] [facility] [address] [place] [address] 8 [facility] COMPREHENS STACY METABOLIC PANEL CARBON DIOXIDE, TOTAL [MOLES/VOLU ME] IN SERUM OR PLASMA 28 meq/L 22 - 31 01/03 Specimen Type: PLASMA No comment entered. Ordering Provider: Krystyna ROBISON R Report Released Date/Time : Jan 04, 2024 09:05 AM Reporting Lab: [place] [facility] [address] [place] [address] 8 Performin g Lab: [place] [facility] [address] [place] [address] 8 [facility] COMPREHENS STACY METABOLIC PANEL CALCIUM [MASS/VOLUM E] IN SERUM OR PLASMA 9.7 mg/dL 8.4 - 10.4 01/03 Specimen Type: PLASMA No comment entered. Ordering Provider: Krystyna ROBISON R Report Released Date/Time : Jan 04, 2024 09:05 AM Reporting Lab: [place] [facility] [address] [place] [address] 8 Performin g Lab: [place] [facility] [address] [place] [address] 8 [facility] COMPREHENS STACY METABOLIC PANEL PROTEIN [MASS/VOLUM E] IN SERUM OR PLASMA 7.4 g/dL 6 - 8.6 01/03 Specimen Type: PLASMA No comment entered. Ordering Provider: Krystyna ROBISON R Report Released Date/Time : Jan 04, 2024 09:05 AM Reporting Lab: [place] [facility] [address] [place] [address] 8 Performin g Lab: [place] [facility] [address] [place] [address] 8 [facility] COMPREHENS STACY METABOLIC PANEL ALBUMIN [MASS/VOLUM E] IN SERUM OR PLASMA 4.5 g/dL 3.4 - 5 01/03 Specimen Type: PLASMA No comment entered. Ordering Provider: Krystyna ROBISON R Report Released Date/Time : Jan 04, 2024 09:05 AM Reporting Lab: [place] [facility] [address] [place] [address] 8 Performin g Lab: [place] [facility] [address] [place] [address] 8 [facility] COMPREHENS STACY METABOLIC PANEL BILIRUBIN.T OTAL [MASS/VOLUM E] IN SERUM OR PLASMA 0.6 mg/dL 0.2 - 1.2 01/03 Specimen Type: PLASMA No comment entered. Ordering Provider: Krystyna ROBISON R Report Released Date/Time : Jan 04, 2024 09:05 AM Reporting Lab: [place] [facility] [address] [place] [address] 8 Performin g Lab: [place] [facility] [address] [place] [address] 8 [facility] COMPREHENS STACY METABOLIC PANEL ALKALINE PHOSPHATASE [ENZYMATIC ACTIVITY/VO LUME] IN SERUM OR PLASMA 105 U/L 40 - 150 01/03 Specimen Type: PLASMA No comment entered. Ordering Provider: ROBISON,C ATHERINE R Report Released Date/Time : Jan 04, 2024 09:05 AM Reporting Lab: [place] [facility] [address] [place] [address] 8 Performin g Lab: [place] [facility] [address] [place] [address] 8 [facility] COMPREHENS STACY METABOLIC PANEL ASPARTATE AMINOTRANSF ERASE [ENZYMATIC ACTIVITY/VO LUME] IN SERUM OR PLASMA 21 U/L 5 - 34 01/03 Specimen Type: PLASMA No comment entered. Ordering Provider: Krystyna ROBISON R Report Released Date/Time : Jan 04, 2024 09:05 AM Reporting Lab: [place] [facility] [address] [place] [address] 8 Performin g Lab: [place] [facility] [address] [place] [address] 8 [facility] COMPREHENS STACY METABOLIC PANEL ALANINE AMINOTRANSF ERASE [ENZYMATIC ACTIVITY/VO LUME] IN SERUM OR PLASMA 26 U/L 8 - 40 01/03 Specimen Type: PLASMA No comment entered. Ordering Provider: Krystyna ROBISON R Report Released Date/Time : Jan 04, 2024 09:05 AM Reporting Lab: [place] [facility] [address] [place] [address] 8 Performin g Lab: [place] [facility] [address] [place] [address] 8 [facility] COMPREHENS STACY METABOLIC PANEL GLOMERULAR FILTRATION RATE/1.73 SQ M.PREDICTED [VOLUME RATE/AREA] IN SERUM, PLASMA OR BLOOD BY CREATININE- BASED FORMULA ([id number] 2020) 94 01/03 Specimen Type: PLASMA No comment entered. Ordering Provider: Krystyna ROBISON R Report Released Date/Time : Jan 04, 2024 09:05 AM Reporting Lab: [place] [facility] [address] [place] [address] 8 Performin g Lab: [place] [facility] [address] [place] [address] 8 [facility] COMPREHENS STACY METABOLIC PANEL CREATININE [MASS/VOLUM E] IN SERUM OR PLASMA 0.91 mg/dL 0.7 - 1.3 12/08 Specimen Type: PLASMA No comment entered. Ordering Provider: NAYA ALEJANDRA Report Released Date/Time : Dec 05, 2022 12:38 PM Reporting Lab: [place] [facility] [address] [place] [address] 8 Performin g Lab: [place] [facility] [address] [place] [address] 8 [facility] COMPREHENS STACY METABOLIC PANEL UREA NITROGEN [MASS/VOLUM E] IN SERUM OR PLASMA 12 mg/dL 9 - 25 12/08 Specimen Type: PLASMA No comment entered. Ordering Provider: NAYA ALEJANDRA Report Released Date/Time : Dec 05, 2022 12:38 PM Reporting Lab: [place] [facility] [address] [place] [address] 8 Performin g Lab: [place] [facility] [address] [place] [address] 8 [facility] COMPREHENS STACY METABOLIC PANEL GLUCOSE [MASS/VOLUM E] IN SERUM OR PLASMA 89 mg/dL 72 - 99 12/08 Specimen Type: PLASMA No comment entered. Ordering Provider: NAYA ALEJANDRA Report Released Date/Time : Dec 05, 2022 12:38 PM Reporting Lab: [place] [facility] [address] [place] [address] 8 Performin g Lab: [place] [facility] [address] [place] [address] 8 [facility] COMPREHENS STACY METABOLIC PANEL SODIUM [MOLES/VOLU ME] IN SERUM OR PLASMA 140 meq/L 136 - 145 12/08 Specimen Type: PLASMA No comment entered. Ordering Provider: NAYA ALEJANDRA Report Released Date/Time : Dec 05, 2022 12:38 PM Reporting Lab: [place] [facility] [address] [place] [address] 8 Performin g Lab: [place] [facility] [address] [place] [address] 8 [facility] COMPREHENS STACY METABOLIC PANEL POTASSIUM [MOLES/VOLU ME] IN SERUM OR PLASMA 4.4 meq/L 3.5 - 5 12/08 Specimen Type: PLASMA No comment entered. Ordering Provider: NAYA ALEJANDRA Report Released Date/Time : Dec 05, 2022 12:38 PM Reporting Lab: [place] [facility] [address] [place] [address] 8 Performin g Lab: [place] [facility] [address] [place] [address] 8 [facility] COMPREHENS STACY METABOLIC PANEL CHLORIDE [MOLES/VOLU ME] IN SERUM OR PLASMA 106 meq/L 98 - 107 12/08 Specimen Type: PLASMA No comment entered. Ordering Provider: NAYA ALEJANDRA Report Released Date/Time : Dec 05, 2022 12:38 PM Reporting Lab: [place] [facility] [address] [place] [address] 8 Performin g Lab: [place] [facility] [address] [place] [address] 8 [facility] COMPREHENS STACY METABOLIC PANEL CARBON DIOXIDE, TOTAL [MOLES/VOLU ME] IN SERUM OR PLASMA 27 meq/L 22 - 31 12/08 Specimen Type: PLASMA No comment entered. Ordering Provider: NAYA ALEJANDRA Report Released Date/Time : Dec 05, 2022 12:38 PM Reporting Lab: [place] [facility] [address] [place] [address] 8 Performin g Lab: [place] [facility] [address] [place] [address] 8 [facility] COMPREHENS STACY METABOLIC PANEL CALCIUM [MASS/VOLUM E] IN SERUM OR PLASMA 9.4 mg/dL 8.4 - 10.4 12/08 Specimen Type: PLASMA No comment entered. Ordering Provider: NAYA ALEJANDRA Report Released Date/Time : Dec 05, 2022 12:38 PM Reporting Lab: [place] [facility] [address] [place] [address] 8 Performin g Lab: [place] [facility] [address] [place] [address] 8 [facility] COMPREHENS STACY METABOLIC PANEL PROTEIN [MASS/VOLUM E] IN SERUM OR PLASMA 6.8 g/dL 6 - 8.6 12/08 Specimen Type: PLASMA No comment entered. Ordering Provider: NAYA ALEJANDRA Report Released Date/Time : Dec 05, 2022 12:38 PM Reporting Lab: [place] [facility] [address] [place] [address] 8 Performin g Lab: [place] [facility] [address] [place] [address] 8 [facility] COMPREHENS STACY METABOLIC PANEL ALBUMIN [MASS/VOLUM E] IN SERUM OR PLASMA 4.2 g/dL 3.4 - 5 12/08 Specimen Type: PLASMA No comment entered. Ordering Provider: NAYA ALEJANDRA Report Released Date/Time : Dec 05, 2022 12:38 PM Reporting Lab: [place] [facility] [address] [place] [address] 8 Performin g Lab: [place] [facility] [address] [place] [address] 8 [facility] COMPREHENS STACY METABOLIC PANEL BILIRUBIN.T OTAL [MASS/VOLUM E] IN SERUM OR PLASMA 0.5 mg/dL 0.2 - 1.2 12/08 Specimen Type: PLASMA No comment entered. Ordering Provider: NAYA ALEJANDRA Report Released Date/Time : Dec 05, 2022 12:38 PM Reporting Lab: [place] [facility] [address] [place] [address] 8 Performin g Lab: [place] [facility] [address] [place] [address] 8 [facility] COMPREHENS STACY METABOLIC PANEL ALKALINE PHOSPHATASE [ENZYMATIC ACTIVITY/VO LUME] IN SERUM OR PLASMA 101 U/L 40 - 150 12/08 Specimen Type: PLASMA No comment entered. Ordering Provider: NAYA ALEJANDRA Report Released Date/Time : Dec 05, 2022 12:38 PM Reporting Lab: [place] [facility] [address] [place] [address] 8 Performin g Lab: [place] [facility] [address] [place] [address] 8 [facility] COMPREHENS SATCY METABOLIC PANEL ASPARTATE AMINOTRANSF ERASE [ENZYMATIC ACTIVITY/VO LUME] IN SERUM OR PLASMA 20 U/L 5 - 34 10/05 /2023 Specimen Type: PLASMA No comment entered. Ordering Provider: NAYA ALEJANDRA Report Released Date/Time : Dec 05, 2022 12:38 PM Reporting Lab: [place] [facility] [address] [place] [address] Performin g Lab: [place] [facility] [address] [place] [address] [facility] COMPREHENS STACY METABOLIC PANEL ALANINE AMINOTRANSF ERASE [ENZYMATIC ACTIVITY/VO LUME] IN SERUM OR PLASMA 23 U/L 8 - 40 12/08 Specimen Type: PLASMA No comment entered. Ordering Provider: NAYA ALEJANDRA Report Released Date/Time : Dec 05, 2022 12:38 PM Reporting Lab: [place] [facility] [address] [place] [address] Performin g Lab: [place] [facility] [address] [place] [address] [facility] COMPREHENS STACY METABOLIC PANEL GLOMERULAR FILTRATION RATE/1.73 SQ M.PREDICTED [VOLUME RATE/AREA] IN SERUM, PLASMA OR BLOOD BY CREATININE- BASED FORMULA (CKD-EPI 2020) 101 12/08 Specimen Type: PLASMA No comment entered. Ordering Provider: NAYA ALEJANDRA Report Released Date/Time : Dec 05, 2022 12:38 PM Reporting Lab: [place] [facility] [address] [place] [address] Performin g Lab: [place] [facility] [address] [place] [address] [facility] CBC LEUKOCYTES [#/VOLUME] IN BLOOD BY AUTOMATED COUNT 7.4 10*3/uL 3.6 - 11.2 12/08 Specimen Type: BLOOD No comment entered. Ordering Provider: NAYA ALEJANDRA Report Released Date/Time : Dec 05, 2022 12:38 PM Reporting Lab: [place] [facility] [address] [place] [address] Performin g Lab: [place] [facility] [address] [place] [address] [facility] CBC ERYTHROCYTE S [#/VOLUME] IN BLOOD BY AUTOMATED COUNT 4.71 10*6/uL 4.10 - 5.70 12/08 Specimen Type: BLOOD No comment entered. Ordering Provider: NAYA ALEJANDRA Report Released Date/Time : Dec 05, 2022 12:38 PM Reporting Lab: [place] [facility] [address] [place] [address] Performin g Lab: [place] [facility] [address] [place] [address] [facility] CBC HEMOGLOBIN [MASS/VOLUM E] IN BLOOD 14.0 g/dL 13.1 - 16.8 12/08 Specimen Type: BLOOD No comment entered. Ordering Provider: NAYA ALEJANDRA Report Released Date/Time : Dec 05, 2022 12:38 PM Reporting Lab: [place] [facility] [address] [place] [address] Performin g Lab: [place] [facility] [address] [place] [phone] [facility] CBC HEMATOCRIT [VOLUME FRACTION] OF BLOOD 41.8 38.2 - 48.4 12/08 Specimen Type: BLOOD No comment entered. Ordering Provider: NAYA ALEJANDRA Report Released Date/Time : Dec 05, 2022 12:38 PM Reporting Lab: [place] [facility] [address] [place] [address] Performin g Lab: [place] [facility] [address] [place] [address] [facility] CBC MCV [ENTITIC VOLUME] BY AUTOMATED COUNT 88.7 fL 80.0 - 100.0 12/08 Specimen Type: BLOOD No comment entered. Ordering Provider: NAYA ALEJANRDA Report Released Date/Time : Dec 05, 2022 12:38 PM Reporting Lab: [place] [facility] [address] [place] [address] Performin g Lab: [place] [facility] [address] [place] [address] [facility] CBC MCH [ENTITIC MASS] BY AUTOMATED COUNT 29.7 pg 27.0 - 34.0 12/08 Specimen Type: BLOOD No comment entered. Ordering Provider: NAYA ALEJANDRA Report Released Date/Time : Dec 05, 2022 12:38 PM Reporting Lab: [place] [facility] [address] [place] [address] 8 Performin g Lab: [place] [facility] [address] [place] [address] 8 [facility] CBC MCHC [MASS/VOLUM E] BY AUTOMATED COUNT 33.5 g/dL 33.0 - 36.0 12/08 Specimen Type: BLOOD No comment entered. Ordering Provider: NAYA ALEJANDRA Report Released Date/Time : Dec 05, 2022 12:38 PM Reporting Lab: [place] [facility] [address] [place] [address] Performin g Lab: [place] [facility] [address] [place] [address] 8 [facility] CBC PLATELETS [#/VOLUME] IN BLOOD BY AUTOMATED COUNT 223 10*3/uL 150 - 400 12/08 Specimen Type: BLOOD No comment entered. Ordering Provider: NAYA ALEJANDRA Report Released Date/Time : Dec 05, 2022 12:38 PM Reporting Lab: [place] [facility] [address] [place] [address] 8 Performin g Lab: [place] [facility] [address] [place] [address] [facility] CBC PLATELET MEAN VOLUME [ENTITIC VOLUME] IN BLOOD BY AUTOMATED COUNT 9.8 fL 7.5 - 11.2 12/08 Specimen Type: BLOOD No comment entered. Ordering Provider: NAYA ALEJANDRA Report Released Date/Time : Dec 05, 2022 12:38 PM Reporting Lab: [place] [facility] [address] [place] [address] Performin g Lab: [place] [facility] [address] [place] [address] [facility] CBC ERYTHROCYTE DISTRIBUTIO N WIDTH [RATIO] BY AUTOMATED COUNT 12.1 11.8 - 15.1 12/08 Specimen Type: BLOOD No comment entered. Ordering Provider: NAYA ALEJANDRA Report Released Date/Time : Dec 05, 2022 12:38 PM Reporting Lab: [place] [facility] [address] [place] [address] Performin g Lab: [place] [facility] [address] [place] [address] [facility] CBC LYMPHOCYTES /100 LEUKOCYTES IN BLOOD BY AUTOMATED COUNT 27.8 12/08 Specimen Type: BLOOD No comment entered. Ordering Provider: NAYA ALEJANDRA Report Released Date/Time : Dec 05, 2022 12:38 PM Reporting Lab: [place] [facility] [address] [place] [address] 8 Performin g Lab: [place] [facility] [address] [place] [address] 8 [facility] CBC MONOCYTES/1 00 LEUKOCYTES IN BLOOD BY AUTOMATED COUNT 5.7 12/08 Specimen Type: BLOOD No comment entered. Ordering Provider: NAYA ALEJANDRA Report Released Date/Time : Dec 05, 2022 12:38 PM Reporting Lab: [place] [facility] [address] [place] [address] 8 Performin g Lab: [place] [facility] [address] [place] [address] [facility] CBC NEUTROPHILS /100 LEUKOCYTES IN BLOOD BY AUTOMATED COUNT 63.1 12/08 Specimen Type: BLOOD No comment entered. Ordering Provider: NAYA ALEJANDRA Report Released Date/Time : Dec 05, 2022 12:38 PM Reporting Lab: [place] [facility] [address] [place] [address] 8 Performin g Lab: [place] [facility] [address] [place] [address] [facility] CBC EOSINOPHILS /100 LEUKOCYTES IN BLOOD BY AUTOMATED COUNT 2.8 12/08 Specimen Type: BLOOD No comment entered. Ordering Provider: NAYA ALEJANDRA Report Released Date/Time : Dec 05, 2022 12:38 PM Reporting Lab: [place] [facility] [address] [place] [address] 8 Performin g Lab: [place] [facility] [address] [place] [address] 8 [facility] CBC BASOPHILS/1 00 LEUKOCYTES IN BLOOD BY AUTOMATED COUNT 0.5 12/08 Specimen Type: BLOOD No comment entered. Ordering Provider: NAYA ALEJANDRA Report Released Date/Time : Dec 05, 2022 12:38 PM Reporting Lab: [place] [facility] [address] [place] [address] Performin g Lab: [place] [facility] [address] [place] [address] [facility] CBC LYMPHOCYTES [#/VOLUME] IN BLOOD BY AUTOMATED COUNT 2.06 10*3/uL 0.77 - 4.50 12/08 Specimen Type: BLOOD No comment entered. Ordering Provider: NAYA ALEJANDRA Report Released Date/Time : Dec 05, 2022 12:38 PM Reporting Lab: [place] [facility] [address] [place] [address] 8 Performin g Lab: [place] [facility] [address] [place] [address] 8 [facility] CBC MONOCYTES [#/VOLUME] IN BLOOD BY AUTOMATED COUNT 0.42 10*3/uL 0.19 - 0.8 12/08 Specimen Type: BLOOD No comment entered. Ordering Provider: NAYA ALEJANDRA Report Released Date/Time : Dec 05, 2022 12:38 PM Reporting Lab: [place] [facility] [address] [place] [address] Performin g Lab: [place] [facility] [address] [place] [address] 8 [facility] CBC NEUTROPHILS [#/VOLUME] IN BLOOD BY AUTOMATED COUNT 4.67 10*3/uL 2.10 - 8.00 12/08 Specimen Type: BLOOD No comment entered. Ordering Provider: NAYA ALEJANDRA Report Released Date/Time : Dec 05, 2022 12:38 PM Reporting Lab: [place] [facility] [address] [place] [address] Performin g Lab: [place] [facility] [address] [place] [address] [facility] CBC EOSINOPHILS [#/VOLUME] IN BLOOD BY AUTOMATED COUNT 0.21 10*3/uL 0.00 - 0.60 12/08 Specimen Type: BLOOD No comment entered. Ordering Provider: NAYA ALEJANDRA Report Released Date/Time : Dec 05, 2022 12:38 PM Reporting Lab: [place] [facility] [address] [place] [address] Performin g Lab: [place] [facility] [address] [place] [address] [facility] CBC BASOPHILS [#/VOLUME] IN BLOOD BY AUTOMATED COUNT 0.04 10*3/uL 0.00 - 0.20 12/08 Specimen Type: BLOOD No comment entered. Ordering Provider: NAYA ALEJANDRA Report Released Date/Time : Dec 05, 2022 12:38 PM Reporting Lab: [place] [facility] [address] [place] [address] Performin g Lab: [place] [facility] [address] [place] [address] [facility] CBC IMMATURE GRANULOCYTE S/100 LEUKOCYTES IN BLOOD BY AUTOMATED COUNT 0.1 12/08 Specimen Type: BLOOD No comment entered. Ordering Provider: NAYA ALEJANDRA Report Released Date/Time : Dec 05, 2022 12:38 PM Reporting Lab: [place] [facility] [address] [place] [address] Performin g Lab: [place] [facility] [address] [place] [address] [facility] CBC IMMATURE GRANULOCYTE S [#/VOLUME] IN BLOOD BY AUTOMATED COUNT 0.01 10*3/uL 0.00 - 0.05 12/08 Specimen Type: BLOOD No comment entered. Ordering Provider: NAYA ALEJANDRA Report Released Date/Time : Dec 05, 2022 12:38 PM Reporting Lab: [place] [facility] [address] [place] [address] Performin g Lab: [place] [facility] [address] [place] [address] [facility] Vital Signs Combined list of inpatient and outpatient Vital Signs from Department of Defense and Veterans Affairs, ranging from 12 months to all on record, depending upon the facility. Vital Sign Value Date Comments Source SYSTOLIC BLOOD PRESSURE 135 10/14/2024 09:07:00 [place] [facility] DIASTOLIC BLOOD PRESSURE 88 10/14/2024 09:07:00 [place] [place] [facility] PULSE OXIMETRY 97 % 10/14/2024 09:07:00 [facility] WEIGHT 211.8 10/14/2024 09:07:00 [place] [facility] BMI 29 kg/m2 10/14/2024 09:07:00 [place] [place] [facility] HEIGHT 72.0 10/14/2024 09:07:00 [place] [place] [facility] PULSE 61 10/14/2024 09:07:00 [place] [facility] RESPIRATION 16 10/14/2024 09:07:00 [place] [place] [facility] SYSTOLIC BLOOD PRESSURE 157 09/13/2024 09[place]45:16 [place] [facility] DIASTOLIC BLOOD PRESSURE 95 09/13/2024 09:45:16 [facility] [place] [facility] PULSE OXIMETRY 98 % 09/13/2024 09:45:16 [facility] [place] [facility] WEIGHT 210.8 09/13/2024 09:45:16 [facility] [place] [facility] BMI 29 kg/m2 09/13/2024 09:45:16 [place] [facility] TEMPERATURE 97.6 09/13/2024 09:45:16 [place] [facility] PULSE 70 09/13/2024 09:45:16 [facility] [place] [facility] RESPIRATION 18 09/13/2024 09:45:16 [facility] [place] [facility] SYSTOLIC BLOOD PRESSURE 135 01/04/2024 08:42:51 [place] [facility] DIASTOLIC BLOOD PRESSURE 80 01/04/2024 08:42:51 [facility] [place] [facility] PULSE OXIMETRY 99 01/04/2024 08:42:51 [place] [facility] WEIGHT 204.7 01/04/2024 08:42:51 [facility] [place] [facility] BMI 28 kg/m2 01/04/2024 08:42:51 [facility] [place] [facility] TEMPERATURE 97.6 01/04/2024 08:42:51 [facility] [place] [facility] PULSE 69 01/04/2024 08:42:51 [place] [facility] RESPIRATION 18 01/04/2024 08:42:51 [facility] Encounters Combined list of: 1) Encounters from Department of Veterans Affairs facilities going backup to the last 18 months, not all VA inpatient encounters are included; 2) Encounters from the Department of Defense facilities going backup to 280 months. 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 04/30 Sick at Home/Quarter s [employer](F [facility]) [employer]([facility]) OUTPATIENT [id number] f/u lab results INOCENCIO MAURER 05/05 Released with Work/Duty Limitations [employer](F [facility]) [employer](- [facility]) OUTPATIENT [id number] f/u INOCENCIO MAURER 06/08 Released with Work/Duty Limitations [employer](F [facility]- [facility]) [employer]([facility]) OUTPATIENT [id number] part II meb JAYY MCPHERSON 06/25 Released w/o Limitations [employer](F [facility]) [employer](Int [facility]al [facility]) OUTPATIENT [id number] dyspnea on exertio n 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 OFF/OP EST JULY X REQ PHY/QHP [id number] Diagnos is: ICD-10- CM Z71.9 Director Risk ing, unspeci CRUZITO Laureano 06/19 [facility] Outpatient Encounter [id number] 10/01 [facility] Outpatient Encounter [id number] 10/02 [facility] Outpatient Encounter [id number] 10/03 [facility] Outpatient Encounter [id number] 11/21 [facility] Outpatient Encounter [id number] 12/03 [facility] [place] [facility] HC PRO PHONE CALL 5-10 MIN [id number] Diagnos is: ICD-10- CM Z12.2 Encntr screen for maligna nt neoplas m of respira tory organs YOAST,DAVIS AN E 12/14 [place] [facility] Outpatient Encounter [id number] TWAN ROBISON THERINE R 01/[address] [facility] Outpatient Encounter [id number] Diagnos is: ICD-10- CM Z00.00 Encntr for general adult medical exam w/o abnorma l finding s Gissel ALEOJ 01/03 [facility] Outpatient Encounter [id number] 01/09 [facility] Outpatient Encounter [id number] 01/10 [facility] Outpatient Encounter [id number] 02/21 [facility] Outpatient Encounter [id number] 02/28 [facility] Outpatient Encounter [id number] 03/21 [facility] Outpatient Encounter [id number] 04/10 [facility] Outpatient Encounter [id number] 04/11 [facility] OFF/OP EST MAY X REQ PHY/QHP [id number] Diagnos is: ICD-10- CM F41.9 Anxiety disorde r, unspeci fied TWAN ROBISON THERINE R 09/13 [facility] OFFICE O/P EST MOD 30 MIN [id number] Diagnos is: ICD-10- CM I10 Essenti al (primar y) hyperte nsion TWAN ROBISON THERINE R 09/13 [facility] PSYTX CRISIS INITIAL 60 MIN [id number] Diagnos is: ICD-10- CM F41.1 General ized anxiety disorde r TIBURCIO GOMES P 09/13 [facility] Outpatient Encounter [id number] 09/19 [facility] [place] [facility] Outpatient Encounter [id number] DAVIS HOWELL KATEY E 09/20 [place] [facility] Outpatient Encounter [id number] 10/03 [facility] PSYCH DIAGNOSTIC EVALUATION [id number] Diagnos is: ICD-10- CM F43.11 Post-tr aumatic stress disorde r, acute TIBURCIO GOMES P 10/04 [facility] Outpatient Encounter [id number] 10/14 [facility] OFFICE O/P EST MOD 30 MIN [id number] Diagnos is: ICD-10- CM F32.A Depress ion, unspeci fied TWAN ROBISON R 10/14 [facility] Procedures Combined list of: 1) Procedures from Department of Veterans Affairs facilities going back up to thelast 18 months, not all VA non-surgical procedures are included; 2) All procedures from the Department of Defense facilities. Procedure Procedure Type Code Date Perfomer Comments Sour e EDUCATIONAL SUPPLIES, SUCH A S BOOKS, TAPES, AND PAMPHLETS, FOR THE PATIENT'S EDUCATION AT COST TO PHYSICIAN OR OTHER QUALIFIED HEALTH MILK TRUCK DRIVER 04/25/2003 [facility] MEASLES AND RUBELLA VIRUS VACCINE, LIVE, FOR SUBCUTANEOUS USE 02/21/2001 [facility] SKIN TEST; TUBERCULOSIS, INTRADERMAL 02/12/2001 [facility] THERAPEUTIC PROCEDURE, 1 OR MORE AREAS, EACH 15 MINUTES; GAIT TRAINING (INCLUDES STAIR CLIMBING) 01/18/2001 [facility] THERAPEUTIC PROCEDURE, 1 OR MORE AREAS, EACH 15 MINUTES; GAIT TRAINING (INCLUDES STAIR CLIMBING) 01/11/2001 [facility] THERAPEUTIC PROCEDURE, 1 OR MORE AREAS, EACH 15 MINUTES; GAIT TRAINING (INCLUDES STAIR CLIMBING) 01/09/2001 [facility] THERAPEUTIC PROCEDURE, 1 OR MORE AREAS, EACH 15 MINUTES; GAIT TRAINING (INCLUDES STAIR CLIMBING) 01/05/2001 [facility] THERAPEUTIC PROCEDURE, 1 OR MORE AREAS, EACH 15 MINUTES; GAIT TRAINING (INCLUDES STAIR CLIMBING) 01/03/2001 [facility] PHYSICAL PERFORMANCE TEST OR MEASUREMENT (EG, MUSCULOSKELETAL, FUNCTIONAL CAPACITY), WITH WRITTEN REPORT, EACH 15 MINUTES 01/01/2001 D EDUCATIONAL SUPPLIES, SUCH A S BOOKS, TAPES, AND PAMPHLETS, FOR THE PATIENT'S EDUCATION AT COST TO PHYSICIAN OR OTHER QUALIFIED HEALTH MILK TRUCK DRIVER 08/17/2000 [facility] EDUCATIONAL SUPPLIES, SUCH A S BOOKS, TAPES, AND PAMPHLETS, FOR THE PATIENT'S EDUCATION AT COST TO PHYSICIAN OR OTHER QUALIFIED HEALTH MILK TRUCK DRIVER 07/18/2000 [facility] INDIVIDUAL PSYCHOTHERAPY, INSIGHT ORIENTED, BEHAVIOR MODIFYING AND/OR SUPPORTIVE, IN AN OFFICE OR OUTPATIENT FACILITY, APPROXIMATELY 20 TO 30 MINUTES HZPA-GY-TEZT WITH THE PATIENT 02/18/2000 [facility] GROUP PSYCHOTHERAPY (OTHER THAN OF A MULTIPLE-FAMILY GROUP) 04/28/1999 [facility] PREPARATION OF REPORT OF PATIENT'S PSYCHIATRIC STATUS, HISTORY, TREATMENT, OR PROGRESS (OTHER THAN FOR LEGAL OR CONSULTATIVE PURPOSES) FOR OTHER INDIVIDUALS, AGENCIES, OR INSURANCE CARRIERS 03/30/1999 [facility] INJECTION, FENTANYL CITRATE, 0.1 MG 05/24/2004 [facility] ELECTROCARDIOGRAM, ROUTINE ECG WITH AT LEAST 12 LEADS; TRACING ONLY, WITHOUT INTERPRETATION AND REPORT 03/19/2004 [facility] PHARMACOLOGIC MANAGEMENT, INCLUDING PRESCRIPTION, USE, AND REVIEW OF MEDICATION WITH NO MORE THAN MINIMAL MEDICAL PSYCHOTHERAPY 10/20/2003 [facility] PURE TONE AUDIOMETRY (THRESHOLD); AIR ONLY 03/05/2003 [facility] SCREENING TEST OF VISUAL ACUITY, QUANTITATIVE, BILATERAL 03/04/2003 [facility] OPHTHALMOLOGICAL SERVICES: MEDICAL EXAMINATION AND EVALUATION, WITH INITIATION OR CONTINUATION OF DIAGNOSTIC AND TREATMENT PROGRAM; COMPREHENSIVE, ESTABLISHED PATIENT, 1 OR MORE VISITS 03/04/2003 [facility] PHYS REV,INT,& PAT MANAGE HOME INR TEST FOR MARIANN RAMIREZ [facility] HEART AMISHA,CHRON ATR FIB/LILA THROMBOEMB MEET MEDICARE COV CRIT;TEST NOT OCCURRING MORE FREQ THAN ONCE/WEEK;BILLING UNITS SERV INCLD 4 TESTS 03/04/2003 [facility] EDUCATIONAL SUPPLIES, SUCH A S BOOKS, TAPES, AND PAMPHLETS, FOR THE PATIENT'S EDUCATION AT COST TO PHYSICIAN OR OTHER QUALIFIED HEALTH MILK TRUCK DRIVER 02/04/2003 [facility] PHYSICAL THERAPY RE-EVALUATION 11/29/2002 [facility] APPLICATION OF A MODALITY TO 1 OR MORE AREAS; HOT OR COLD PACKS 11/26/2002 [facility] APPLICATION OF A MODALITY TO 1 OR MORE AREAS; TRACTION, MECHANICAL 11/21/2002 [facility] APPLICATION OF A MODALITY TO 1 OR MORE AREAS; TRACTION, MECHANICAL 11/19/2002 [facility] PHYSICAL THERAPY RE-EVALUATION 11/12/2002 [facility] THERAPEUTIC PROCEDURE, 1 OR MORE AREAS, EACH 15 MINUTES; THERAPEUTIC EXERCISES TO DEVELOP STRENGTH AND ENDURANCE, RANGE OF MOTION AND FLEXIBILITY 10/31/2002 [facility] THERAPEUTIC PROCEDURE, 1 OR MORE AREAS, EACH 15 MINUTES; THERAPEUTIC EXERCISES TO DEVELOP STRENGTH AND ENDURANCE, RANGE OF MOTION AND FLEXIBILITY 10/22/2002 [facility] THERAPEUTIC PROCEDURE, 1 OR MORE AREAS, EACH 15 MINUTES; THERAPEUTIC EXERCISES TO DEVELOP STRENGTH AND ENDURANCE, RANGE OF MOTION AND FLEXIBILITY 10/17/2002 [facility] THERAPEUTIC PROCEDURE, 1 OR MORE AREAS, EACH 15 MINUTES; THERAPEUTIC EXERCISES TO DEVELOP STRENGTH AND ENDURANCE, RANGE OF MOTION AND FLEXIBILITY 10/15/2002 [facility] THERAPEUTIC PROCEDURE, 1 OR MORE AREAS, EACH 15 MINUTES; THERAPEUTIC EXERCISES TO DEVELOP STRENGTH AND ENDURANCE, RANGE OF MOTION AND FLEXIBILITY 10/10/2002 [facility] SELF-CARE/HOME MANAGMENT TRAIN (EG,ACT OF DAILY LIVING (ADL) &COMPENSAT TRAIN,MEAL PREPARATION,SAFETY PROCS,AND INSTRUCT IN USE OF ASST TECHNOLOGY DEV/ADPT EQUIP) DIR ONE-ON-ONE CONT,EA 15 MINUTES 10/08/2002 [facility] SPECIAL REPORTS SUCH INSURANCE FORMS, MORE THAN THE INFORMATION CONVEYED IN THE USUAL MEDICAL COMMUNICATIONS OR STANDARD REPORTING FORM 04/16/2002 [facility] PHYSICAL THERAPY RE-EVALUATION 11/02/2001 [facility] THERAPEUTIC PROCEDURE,1 OR MORE AREAS,EACH 15 MINUTES;NEUROMUSCULAR REEDUCATION OF MOVEMENT,BALANCE,COORDINATION ,KINESTHETIC SENSE,POSTURE,AND/OR PROPRIOCEPTION FOR SITTING AND/OR STANDING ACTIVITIES 10/30/2001 [facility] EDUCATIONAL SUPPLIES, SUCH A S BOOKS, TAPES, AND PAMPHLETS, FOR THE PATIENT'S EDUCATION AT COST TO PHYSICIAN OR OTHER QUALIFIED HEALTH MILK TRUCK DRIVER 06/22/2001 [facility] PURE TONE AUDIOMETRY (THRESHOLD); AIR ONLY 06/22/2001 DoD Social History Combined list of available smoking, tobacco, and other social history from [facility] Defense and [facility] facilities. Social History Type Response Date Comment Source Tobacco smoking status CAIS VA-TOBACCO USE EVERY DAY CIGARETTES 09/13/2024 [facility] History of tobacco use VA-TOBACCO NEVER USED OTHER TYPE 09/13/2024 [facility] History of tobacco use VA-TOBACCO USE WI 30 MIN OF WAKEUP 12/08/2022 [facility] History of tobacco use VA-TOBACCO USER EVERY DAY 10/13/2021 [facility] History of tobacco use VA-TOBACCO USER EVERY DAY 03/11/2020 [facility] History of tobacco use VA-TOBACCO USE MED NO 03/07/2019 [facility] History of tobacco use TOBACCO USER OFFERED MEDS 12/27/2017 [facility] History of tobacco use TOBACCO USER OFFERED MEDS 06/29/2017 [facility] History of tobacco use TOBACCO USER OFFERED MEDS 03/27/2017 [facility] History of tobacco use LIFETIME NON-USER OF TOBACCO 03/09/2015 [facility] History of tobacco use PT ON TOBACCO CESSATION MED 12/31/2013 Bupropion pt doesnt take it any more [facility] History of tobacco use CURRENT TOBACCO USER 01/25/2013 [facility] History of tobacco use CURRENT TOBACCO USER 02/09/2012 [facility] History of tobacco use CURRENT TOBACCO USER 12/28/2010 [facility] History of tobacco use CURRENT TOBACCO USER 10/29/2009 [facility] History of tobacco use CURRENT TOBACCO USER 11/28/2008 [facility] History of tobacco use CURRENT TOBACCO USER 10/26/2007 [facility] History of tobacco use TOBACCO USER - CURRENT *HF 07/14/2006 [facility] History of tobacco use TOBACCO USER - CURRENT *HF 04/01/2005 [facility] This section is an empty social history section. [facility] Plan of Care List of future care activities from [facility] facilities. Additional future care activities may be listed in the Assessment and Plan section. Date/Time Care Activity Care Activity Detail Facili ty 12/12/2024 AMBULATORY - MEDICINE AMBULATORY - MEDICI [facility] Advance Directives List of completed, amended, or rescinded Advance Directives on record at [facility] facilities. An actual copy of the Directive is not included. Date Advance Directive Provider Source 03/28/2012 ADVANCE DIRECTIVE DISCUSSION [facility]
--- OUTSIDE RECORDS SUMMARY | 2024-10-20 13:23 | XMS_ITS | Patient Health Record ---
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 Role Phone Robb Worrell Unavailable [phone] Reason For Referral No Information Medications Medication SIG (Take, Route, Frequency, Duration) Notes Start Date End Date Status Lab Order Orders as directed Cardiac Rehab P hase 2 status Post Stent *Reorder from [facility] for eRx and Interaction Alerts* 05/03/2017 Active Plavix 75 MG Tablet 1 tablet Orally Once a day Active Aspirin 81 MG Tablet Chewable 1 tablet Orally Once a day Active Atorvastatin Calcium 80 MG Tablet 1 tablet Orally Once a day Active Omeprazole 40 MG Capsule Delayed Release 2 capsule Orally Once a day Active Lisinopril 5 MG Tablet 1 tablet Orally Once a day Active Social History Social History Additional Details Category Social Info Options Details Migrated Social History Migrated Social History (Tobacco Use:): Are you a: current smoker, How often do you smoke cigarettes? every day, How many cigarettes a day do you smoke? 5 or less (Exercise:):Yes Active at work (Marital status:): (Occupation:):Employed (Alcohol:):Positive Rarely (Caffeine:): Yes (Residence:):Home (Smoking): Current 1/2 ppd (Recreational Drug Use:):No Problems Problem Type SNOMED Code ICD Code Onset Dates Problem Status W/U Status Risk Notes Problem Unstable angina (9789447) Unstable angina (I20.0) Active confirmed Problem Tobacco use (185074017) Tobacco use (Z72.0) Active confirmed Counseled. Problem Essential hypertension (63397724) Essential hypertension (I10) Active confirmed Controlled. Cont current meds. Problem Chest pain (15636974) Chest pain, unspecified type (R07.9) Active confirmed Problem Troponin I above reference range (063085466) Elevated troponin (R74.8) Active confirmed Problem Dyspnea on exertion (92578183) [place] (dyspnea on exertion) (R06.09) Active confirmed Problem Acute non-ST segment elevation myocardial infarction (382800461) NSTEMI (non-ST elevated myocardial infarction) (I21.4) Active confirmed Problem Atherosclerosis of coronary artery without angina pectoris (723400683025266) Atherosclerosis of [place] coronary artery of [place] heart without angina pectoris (I25.10) Active confirmed DAPT for 1 year. Stress test sowed good exercise tolerance. Going to rehab, no limitations at work now. Non cardiac chest pains, reassurance given. Done with rehab. Still smoking, will plan for adding antianginals for the diagonal disease. Problem Family history of cardiovascular disease (191914509) Family history of cardiovascular disease (Z82.49) Active confirmed Problem Cardiac implant in situ (532544194) S/P angioplasty with stent (Z95.9) Active confirmed Angina free. Cont current meds. Risk factor modifications . Plan Of Treatment No Information Insurance Providers Payer Name Payer Address Payer Phone Subscriber Number Group Number Insured Name Patient Relationship to Insured Coverage Start Date Coverage End Date [facility] [address] [address] [place] [address] [id number] gracy nicole Spouse - patient is the spouse of the insured Medical (General) History Medical History History ICD Code Hyperlipidemia Hypertension Depression TM METS 12, Negative exercise treadmill test. Echo EF 60-65%, n o regional wall motion abnormalities, wall thickness was mildly increased, size normal, left ventricular diastolic function parameters were normal. Surgical History Surgery Date(Month/Year) Heart catheterization w/ stents Hernia repair
--- NOTE | 2024-10-20 13:36 | W.ED.WOUNDLC ---
HPI - Wound/Laceration General: Chief Complaint: Wound/Laceration Stated Complaint: pink lt hand lac Time Seen by Provider: 10/20/24 13:21 Source: patient Mode of arrival: ambulatory Limitations: no limitations History of Present Illness: 54-year-old male states that he cut his left pinky finger with a metal box maker just prior to arrival. States he is on blood thinners had some bleeding but it slowed down he denies any other injuries he has full range of motion unsure if she is up-to-date on his tetanus Associated symptoms: Denies chills, fever(s), nausea or vomiting Related Data Home Medications ?Medication ?Instructions ?Recorded ?Confirmed aspirin 81 mg tablet,delayed 81 mg PO QPM 04/11/19 03/21/24 release clopidogrel 75 mg tablet (Plavix) 75 mg PO DAILY 04/11/19 03/21/24 omeprazole 20 mg capsule,delayed 20 mg PO DAILY 04/11/19 03/21/24 release atorvastatin 80 mg tablet 80 mg PO QPM 06/19/23 03/21/24 docusate sodium 100 mg capsule 100 mg PO TID PRN Constipation 06/19/23 06/19/23 losartan 50 mg tablet 25 mg PO QPM 06/19/23 03/21/24 Previous Rx's ?Medication ?Instructions ?Recorded nitroglycerin 0.4 mg sublingual 0.4 mg sublingual Q5M PRN chest 04/13/20 tablet (Nitrostat) pain #90 tabs albuterol sulfate 90 mcg/actuation 2 inh inhalation Q4H PRN shortness 02/27/22 aerosol inhaler of breath or wheezing #8.5 grams cock up wrist splint #1 ea 01/16/23 cock up wrist splint #1 ea 01/16/23 Allergies Allergy/AdvReac Type Severity Reaction Status Date / Time No Known Allergies Allergy Verified 03/21/24 12:44 Review of Systems Const: Denies: fever(s), chills, body aches or change in appetite ENMT: Denies: throat pain or dental pain Card: Denies: chest pain Resp: Denies: dyspnea GI: Denies: abdominal pain, nausea, vomiting or diarrhea Musc: Denies: neck pain or back pain Skin/Breast: Denies: rash Neuro: Denies: headache(s) PFSH ED PFSH: Medical History Shortness of breath History of colon polyps (~2004) GERD (gastroesophageal reflux disease) History of myocardial infarction Hyperlipidemia Sleep apnea Surgical History Status post right inguinal hernia repair Status post colonoscopy History of coronary artery stent placement Family History Father Hypertension Denies family history of Anesthesia complication Bleeding disorder Social History Smoking and tobacco/nicotine status: former use of tobacco/nicotine Quit status (tobacco/nicotine): has tried quititng Second hand smoke exposure: No Alcohol intake: current Alcohol intake frequency: holidays/special occasions only Substance/Drug Use: never Adopted: No Caregiver/support person: Yes Lives independently: Yes Household members: spouse Housing: House Marital status: Highest education level completed: High School Graduate service: Yes Current occupational status: employed Current occupational exposures/hazards: No Pets and animals: Yes Sexually active: Yes Do you think of yourself as: Straight/Heterosexual Current gender identity: Male Cristina/Islam: Yazdanism Special cristina needs: No Agree to transfusion: No Physical Exam Const: COMMON NORMALS: no acute distress, patient oriented x3 and healthy appearing HENMT: COMMON NORMALS: normocephalic and atraumatic HEAD & SCALP: normocephalic and atraumatic Eye: COMMON NORMALS: conjunctivae normal CONJUNCTIVA: Yes conjunctivae normal Neck/C-Spine: COMMON NORMALS: full ROM and supple Chest: COMMONS NORMALS: normal inspection of the chest Resp: COMMON NORMALS: normal respiratory effort Cardio: COMMON NORMALS: regular rate RATE: regular rate Extremity: COMMON NORMALS: full ROM NARRATIVE EXTREMITY EXAM: 1 cm laceration to the distal tip of his left pinky finger bleeding is controlled no tendon involvement Neuro: COMMON NORMALS: patient oriented x3, moves all extremities and no focal motor deficits Psych: COMMON NORMALS: mental status grossly normal, Normal thought process present and cooperative THOUGHT PROCESS: Normal thought process present Skin: COMMON NORMALS: no rashes or lesions noted GENERAL SKIN EXAM: no rashes or lesions noted Procedures Laceration Laceration 1: Site: hand Side (If applicable): left Size (cm): 1 Description: linear Depth: simple, single layer Pre-repair: wound explored and irrigated extensively Skin layer closed with: other (dermabond) Course Vital Signs: Vital signs: Vital Signs Pulse Rate 87 10/20/24 13:21 Respiratory Rate 16 10/20/24 13:21 Blood Pressure 151/96 10/20/24 13:21 Pulse Oximetry 96 10/20/24 13:21 Oxygen Delivery Me thod Room Air 10/20/24 13:21 MDM - Wound/Laceration Medical Decision Making Patient presents here with laceration did repair with tissue adhesive he is well-appearing here stable for discharge Medical Records I reviewed the patient's medical records. No radiology studies performed this visit Discharge Plan Discharge Patient Disposition: Home Clinical Impression: Laceration Condition: Stable Prescriptions: No Action omeprazole 20 mg capsule,delayed release(DR/EC) 20 mg PO DAILY clopidogrel [Plavix] 75 mg tablet 75 mg PO DAILY aspirin 81 mg tablet,delayed release (DR/EC) 81 mg PO QPM nitroglycerin [Nitrostat] 0.4 mg tablet, sublingual 0.4 mg sublingual Q5M PRN (Reason: chest pain) Qty: 90 3RF Rx Instructions: do not exceed 3 doses per episode (DME) cock up wrist splint See Rx Instructions .Route .MEDSUPPLY Qty: 1 0RF Rx Instructions: As directed (DME) cock up wrist splint See Rx Instructions .Route .MEDSUPPLY Qty: 1 0RF Rx Instructions: As directed albuterol sulfate 90 mcg/actuation HFA aerosol inhaler 2 inh inhalation Q4H PRN (Reason: shortness of breath or wheezing) Qty: 8.5 0RF losartan 50 mg Tablet 25 mg PO QPM atorvastatin 80 mg Tablet 80 mg PO QPM docusate sodium 100 mg Capsule 100 mg PO TID PRN (Reason: Constipation) Discharge Orders: Discharge ED (Routine); Ordered 10/20/24 Ordered By: Lubna Lee Referrals: Charlee Wild FNP [Primary Care Provider, Nurse Practitioner] Discharge Diet: Advance as tolerated Discharge Activity: Resume usual activity Patient Instructions: Laceration (ED), Skin Adhesive Care (ED) Print Language: Martiniquais Coding Level of Care Code ED Conference Translator for Al Winston
[2024-10-20] MEDS: tetanus-dipt-pertussis 0.5 mL SDV IM (13:46)
== END 2024-10-20 13:56 | disposition home or self-care (01) ==
PROVIDERS: Emergency Provider Emergency Medicine; PCP Nurse Practitioner
DX: S61.217A Laceration without foreign body of left little finger without damage to nail, initial encounter (principal); Z79.02 Long term (current) use of antithrombotics/antiplatelets; Z79.82 Long term (current) use of aspirin; Z87.891 Personal history of nicotine dependence; E78.5 Hyperlipidemia, unspecified; W26.8XXA Contact with other sharp object(s), not elsewhere classified, initial encounter
CPT/HCPCS: 12001; 90471; 90715; 99283